=== PATIENT | female | born 1940 | race Caucasian/White ===

== ENCOUNTER 2019-05-31 14:36 | Inpatient (IN) ==
--- OUTSIDE RECORDS SUMMARY | 2019-05-31 14:38 | External Medical Summary | Continuity of Care Document ---
:1940 Author Name Gala Fong, Provider Address Unavailable Unavailable , Care Team Providers Name Role Phone Unavailable Unavailable Unavailable SHANE MCNEAL Unavailable Unavailable Problems Active medical history not documented Allergies and Adverse Reactions No Known Drug Allergies (Allergy) Medications Crestor Ajit TAPIA Refills: 0 Aspirin 81 MG TABAjit Everett Refills: 0 Procedures Procedures not documented Immunizations Immunizations not documented Plan of Treatment Planned Observations Planned Goals not documented Results No Known Results Results not documented
[2019-05-31] MEDS ORDERED: ONDANSETRON INJ 2 MG/ML 2 ML VIAL IV STA (14:58)
[2019-05-31] MEDS ORDERED: SODIUM CHLORIDE 0.9% 1000ML 1,000 ML IV ONE (14:58)
[2019-05-31] MEDS ORDERED: MoRPHine SULFATE 2 MG/ML CARP IV STA (15:08)
[2019-05-31] MEDS ORDERED: SODIUM CHLORIDE 0.9% 1000ML 500 ML IV ONE (15:14)
--- NOTE | 2019-05-31 15:36 | Emergency Department Note ---
ED Visit Note This patient was seen in concert with Dr. Mckay and we discussed and agreed upon the history, physical, assessment and plan. . Resident Activity Tracking Resident Involvement: Resident Care Provided Care Provided: Adult [facility] Medicine
[2019-05-31 15:39] LABS: Basophils # (auto) 0.01 K/uL (0-0.2); Basophils % (auto) 0.1 %; Eosinophils # (auto) 0.01 K/uL (0-0.5); Eosinophils % (auto) 0.1 %; Hematocrit (blood only) 39.1 % (37-47); Hemoglobin 13.3 g/dL (12.0-16.0); Immature Granulocytes # (auto) 0.04 K/uL (0.00-0.02); Immature Granulocytes % (auto) 0.3 %; Lymphocytes # (auto) 0.83 K/uL (1.2-3.4); Lymphocytes % (auto) 6.5 %; Mean Corpuscular Hemoglobin 29.4 pg (25-34); Mean Corpuscular Volume 86.5 fL (80-100); Mean Platelet Volume 10.8 fL (7.4-10.4); Monocytes # (auto) 0.59 K/uL (0.11-0.59); Monocytes % (auto) 4.6 %; Neutrophils # (auto) 11.33 K/uL (1.4-6.5); Neutrophils % (auto) 88.4 %; Platelet Count 210 K/uL (130-400); RDW Coefficient of Variation 13.4 % (11.5-14.5); RDW Standard Deviation 42.5 fL (36.4-46.3); Red Blood Count 4.52 M/uL (4.2-5.4); White Blood Count 12.81 K/uL (4.8-10.8)
[2019-05-31 16:04] LABS: Albumin Level 3.9 gm/dl (3.4-5.0); Calcium 9.7 mg/dl (8.5-10.1); Creatinine Clr Calc Pharmacy 39.1 ml/min; Est GFR (African American) 65.2; Est GFR (Non-African American) 56.2; Potassium 3.4 mmol/L (3.5-5.1)
[2019-05-31 16:07] LABS: Albumin Globulin Ratio 1.1 (0.9-2); Bilirubin,Total 0.6 mg/dl (0.2-1); Globulin 3.5 gm/dl (2.5-4.0); Total Protein 7.4 gm/dl (6.4-8.2)
[2019-05-31] MEDS ORDERED: IOVERSOL 100ml IV PRN (16:23)
--- NOTE | 2019-05-31 16:52 | CT Scan Report ---
CT abd pelvis IV con only CLINICAL HISTORY: Right abdominal pain COMPARISON STUDY: August 2015 TECHNIQUE: The patient was scanned in a dynamic helical fashion during intravenous administration of 93 cc of Optiray 320. A dose lowering technique was utilized adhering to the principles of ALARA. CT DOSE: 585.73 mGycm FINDINGS: Lower chest: There are minor dependent atelectatic changes. Liver: No focal hepatic masses are visualized. There is minimal intrahepatic biliary ductal prominenc e, likely secondary to a prior cholecystectomy. Gallbladder: Surgically absent Spleen: There are no focal splenic masses. There is trace fluid at the level of the lower pole of the spleen. There is minimal infiltration of the fat at the inferior margin of the spleen. Pancreas: Unremarkable. Adrenal glands: Unremarkable. Kidneys: There is symmetric renal cortical enhancement. The kidneys are normal in size without hydron ephrosis. Bowel: There is colonic diverticulosis. There is sigmoid bowel wall thickening with minimal infiltrat ion of the perisigmoid fat. While likely secondary to diverticulitis, or infectious colitis, close cl inical follow-up will be necessary to exclude an underlying neoplasm. There is mild dilatation of the more proximal colon with moderate fecal retention. There are mildly prominent fluid-filled small bow el loops. Peritoneum: There is no free air. There is trace intra-abdominal fluid. Vasculature: The abdominal aorta is normal in course and caliber. Adenopathy: None. Pelvic viscera: The uterus appears surgically absent. Skeletal structures: No destructive osseous lesions are seen. IMPRESSION: 1. Sigmoid diverticulosis with sigmoid wall thickening and mild infiltration of perisigmoid fat. Whil e likely secondary to diverticulitis or infectious sigmoid colitis, close follow-up will be necessary to exclude an underlying neoplasm 2. There is secondary mild dilatation of the more proximal colon with moderate fecal retention. Addit ion there are mildly prominent fluid-filled small bowel loops 3. No evidence of free intraperitoneal air Electronically signed by: Delonte Elizabeth M.D. 05/31/2019 4:50 PM
[2019-05-31] MEDS ORDERED: ONDANSETRON INJ 2 MG/ML 2 ML VIAL IV PRN (18:29)
[2019-05-31] MEDS ORDERED: ACETAMINOPHEN 1,000 MG/100 ML VIAL IV PRN (18:42)
--- NOTE | 2019-05-31 18:43 | History & Physical Report ---
Date of Service May 31, 2019 Assessment & Plan (1) Diverticulitis: This is a 78-year-old female with a PMH of hyperlipidemia, hypothyroidism and GERD who presents with worsening abdominal pain x 3 days and was found to have acute diverticulitis and moderate fecal retention. -Diffuse abdominal pain, nausea and vomiting x 3 days. Diagnosed with colitis at outside hospital yesterday and started on Cipro and Flagyl -Afebrile, hemodynamically stable. Leukocytosis of 12.1 -CT abdomen pelvis with sigmoid diverticulosis with sigmoid wall thickening and mild infiltration of perisigmoid fat likely secondary to diverticulitis -Continue antibiotic coverage with Zosyn -IV fluids, pain control, n.p.o. for now -Routine GI consult (2) Fecal retention: Last bowel movement 5 days ago. Endorses 2 bowel movements per week, so this is not entirely unusual -CT abd/pelvis with moderate fecal retention and additional mildly prominent fluid-filled small bowel loops -Started on bowel regimen with Senokot-S twice daily and daily MiraLAX -Repeat KUB in the morning (3) Electrolyte abnormality: Na of 135, K of 3.4 in setting of vomiting, poor PO intake -IV fluid replacement with potassium (4) Hyperlipidemia: Continue atorvastatin (5) Hypothyroidism: Continue levothyroxine (6) GERD (gastroesophageal reflux disease): Continue omeprazole DVT Ppx: SCDs Code status: DNR per discussion with patient PCP: Cole YANES ([place]) Dispo: Admitted to med/surg. Plan to return home once medically stable. Patient seen in collaboration with Dr. Chung. Please see addendum. History of Present Illness Chief Complaint: Abdominal pain Primary Care Provider: Antonio Galvan This is a 78-year-old female with a PMH of hyperlipidemia, hypothyroidism and GERD who presents with worsening abdominal pain x 3 days. Patient endorses diffuse sharp abdominal pain with associated nausea. Was seen at [facility] yesterday and was diagnosed with colitis and discharged on Cipro and Flagyl. Overnight, patient developed worsening nausea and endorses 12 small episodes of bilious emesis. Came to ED today for further evaluation. Endorses continued nausea, vomiting and diffuse abdominal pain. Last bowel movement was 5 days ago the patient states she normally only has 2 bowel movements per week. Denies any nausea, vomiting, lightheadedness, visual changes, chest pain, palpitations, dysuria, hematuria or diarrhea. Has history of diverticulitis episode years ago. Allergies Allergy/AdvReac Type Severity Reaction Status Date / Time fexofenadine Allergy Unknown HIVES Verified 05/31/19 15:34 pseudoephedrine Allergy Unknown HIVES Verified 05/31/19 15:34 Home Medications Home Medications Medication Instructions Recorded Confirmed Type atorvastatin 10 mg PO DAILY 05/31/19 05/31/19 History ciprofloxacin HCl 500 mg PO Q12H 05/31/19 05/31/19 History latanoprost 1 drp OPB HS 05/31/19 05/31/19 History levothyroxine 75 mcg PO QAM 05/31/19 05/31/19 History metronidazole 500 mg PO Q8H 05/31/19 05/31/19 History omeprazole 20 mg PO QAM 05/31/19 05/31/19 History ondansetron HCl 4 mg PO Q8H PRN 05/31/19 05/31/19 History Past Med/Surg History Medical History GERD (gastroesophageal reflux disease) (Chronic) Hyperlipidemia (Chronic) Hypothyroidism (Chronic) Surgical History Hx of cervical spine surgery (Chronic) Hx of cholecystectomy (Chronic) Status post hysterectomy (Chronic) Family History Other Coronary heart disease Diabetes Social History Preferred Language: Urdu Communication Ability: Effective International Nurse Required: No Beliefs That Will Affect Care: None Current Living Situation: Alone Other Information That Helps Us Care for You: No Feels Safe at Home: Yes Safety Concerns: Feels Safe At This Time Smoking Status: Never smoker Hx Alcohol Use: No Hx Substance Use: No Review of Systems Review of Systems: At least ten systems reviewed and negative except as noted in the HPI. Physical Exam Physical Exam: General Appearance: WD/WN, vitals as above, NAD, sitting up in bed, pleasant, conversing easily Head: normocephalic, atraumatic Eyes: normal inspection, PERRL, conjunctivae normal, anicteric sclerae ENT: external ear and nose normal, oropharynx normal Neck: trachea midline, no thyromegaly normal visual inspection Respiratory: lungs clear to auscultation, no wheeze, rales, rhonchi. Normal insp/exp effort, no accessory muscle use Cardiovascular: regular rate, rhythm, no murmur appreciated, normal peripheral pulses, trace BLE edema. Vessels: no JVD or carotid bruit Chest: normal inspection of chest Abdomen/GI: hypoactive bowel sounds, soft but distended, diffusely tender to palpation, no guarding, no hepatosplenomegaly Extremities/Musculoskelatal: no cyanosis or clubbing, extremities motor strength 5/5 Neurologic: PERRL, EOMI, accommodation nl, no face palsy, no dysarthria CN's II-XI intact bilaterally and moves all extremities Psychiatric: A+Ox3, euthymic affect Skin: no rashes, normal color, warm/dry Results & Data Vital Signs (Past 12 Hours) Vital Signs Temp Pulse Pulse Resp BP BP Pulse Ox 05/31/19 18:10 67 20 142/97 H 99 05/31/19 17:00 83 18 171/67 H 96 05/31/19 14:43 37.0 C 94 H 18 130/75 94 Laboratory Results Short CBC 05/31/19 Range/Units 15:23 WBC 12.81 H (4.8-10.8) K/uL Hgb 13.3 (12.0-16.0) g/dL Hct 39.1 (37-47) % Plt Count 210 (130-400) K/uL BMP 05/31/19 15:23 Sodium 135 L Potassium 3.4 L Chloride 102 Carbon Dioxide 26 BUN 14 Creatinine 0.96 Glucose 131 H Calcium 9.7 Liver Function 05/31/19 Range/Units 15:23 Total Bilirubin 0.6 (0.2-1) mg/dl AST 15 (15-37) U/L ALT 15 (12-78) U/L Alkaline Phosphatase 107 (45-117) U/L Albumin 3.9 (3.4-5.0) gm/dl Diagnostic Findings CT abd/pelvis: IMPRESSION: 1. Sigmoid diverticulosis with sigmoid wall thickening and mild infiltration of perisigmoid fat. While likely secondary to diverticulitis or infectious sigmoid colitis, close follow-up will be necessary to exclude an underlying neoplasm 2. There is secondary mild dilatation of the more proximal colon with moderate fecal retention. Addition there are mildly prominent fluid-filled small bowel loops 3. No evidence of free intraperitoneal air Code Status & VTE Plan VTE Prophylaxis Plan VTE Prophylaxis will be ordered: Yes Supervising Physician Co-Signing Physician Notes Patient is a 78-year-old female with history of hyperlipidemia, GERD and other problems presents with history of worsening abdominal pain since 3 days duration. Reports associated nausea, vomiting, constipation. Last bowel movement is 5 days ago. She also reports having bloody bowel movement yesterday. She was evaluated at [facility] yesterday and was discharged home on oral antibiotics. Her abdomen is more distended than usual as per the patient. Symptoms have gradually worsened and so she presented to the ED for further evaluation. CT abdomen showed findings suggestive of sigmoid diverticulitis or infectious sigmoid colitis. Also showed fecal retention. No evidence of intraperitoneal air. On exam patient is moderately built and aldo shed, no apparent distress, normocephalic atraumatic, lungs are clear to auscultation, S1-S2, no murmur, abdomen soft, mildly distended, diffuse tender, decreased bowel sounds, no pedal edema, grossly no focal neurological deficits. Patient is admitted for management of acute diverticulitis, fecal retention. Agree with IV fluids, IV Zosyn, bowel rest, pain control. Will repeat KUB in the morning. Started on bowel regimen for constipation. Minimize narcotic use secondary to fecal retention. I personally reviewed the record. Patient is interviewed and examined at bedside. Patient's care is coordinated with Taniya Quintanilla PA-C. Please refer to the documentation above for details of patient's presentation and for discussion of other issues.
[2019-05-31] MEDS ORDERED: PIPERACILL/TAZOBAC CONSULT ACTIVE PRN (18:46)
[2019-05-31] MEDS ORDERED: PIPERACILLIN/TAZOBACTAM 3.375 GM in DEXTROSE 5% 100 ML IV ONE (19:00)
[2019-05-31] MEDS: MoRPHine SULFATE 2 MG/ML CARP IV PRN (19:47)
[2019-05-31] MEDS: NSS + 20MEQ KCL 20 MEQ/1,000 ML BAG IV SCH (19:49)
--- NOTE | 2019-05-31 19:52 | Emergency Department Note ---
Entered by Charley Kidd acting as a scribe for Abdi Mckay MD History of Present Illness General Chief complaint: Vomiting Stated complaint: ABD PAIN,VOMITING,CANT KEEP FOOD/MEDS Time Seen by Provider: 05/31/19 14:45 Source: patient and family History of Present Illness Onset (ago): day(s) 2 Location: abdomen Pain Consistency: + other (persistent ) Maximum Pain Intensity: 5 Quality: + sharp Associated symptoms: + nausea/vomiting and + other (positive constipation; positive bright red blood in stool; negative diarrhea; negative palpitations); no fever/chills The patient is a 78 year old female of PHMx of Thyroid disorder who presents to the Emergency Room with complaints of persistent abdominal pain that began approximately two days prior to arrival. She describes her pain as sharp. The patient states that she has had nausea and vomiting during this time. She states that she was seen in the [place] ED two days ago for these symptoms and was diagnosed with colitis. The patient states that she was given Cipro, Flagil, and Zofran for her symptoms, but states that she has been unable to keep these medications down without vomiting. Per the patient's granddaughter at bedside, the patient has been constipated during this time, but had some bright red blood in a bowel movement yesterday. The patient denies diarrhea, palpitations, and fever. The patient denies a history of hemorrhoids. Home Medications Home Medications Medication Instructions Recorded Confirmed Type atorvastatin 10 mg PO DAILY 05/31/19 05/31/19 History ciprofloxacin HCl 500 mg PO Q12H 05/31/19 05/31/19 History latanoprost 1 drp OPB HS 05/31/19 05/31/19 History levothyroxine 75 mcg PO QAM 05/31/19 05/31/19 History metronidazole 500 mg PO Q8H 05/31/19 05/31/19 History omeprazole 20 mg PO QAM 05/31/19 05/31/19 History ondansetron HCl 4 mg PO Q8H PRN 05/31/19 05/31/19 History Allergies Allergy/AdvReac Type Severity Reaction Status Date / Time fexofenadine Allergy Unknown HIVES Verified 05/31/19 15:34 pseudoephedrine Allergy Unknown HIVES Verified 05/31/19 15:34 Past Med/Surg History Medical History GERD (gastroesophageal reflux disease) (Chronic) Hyperlipidemia (Chronic) Hypothyroidism (Chronic) Surgical History Hx of cervical spine surgery (Chronic) Hx of cholecystectomy (Chronic) Status post hysterectomy (Chronic) Family History Other Coronary heart disease Diabetes Social History Preferred Language: Romanian Communication Ability: Effective Pipe Processor Required: No Beliefs That Will Affect Care: None Current Living Situation: Alone Other Information That Helps Us Care for You: No Feels Safe at Home: Yes Safety Concerns: Feels Safe At This Time Smoking Status: Never smoker Hx Alcohol Use: No Hx Substance Use: No Review of Systems See HPI for pertinent positives & negatives. and A total of 10 systems reviewed and were otherwise negative Physical Exam Vital Signs Vital Signs - 24 hr 05/31/19 14:43 05/31/19 15:12 05/31/19 17:00 Temperature 37.0 C Temperature Source Oral Oral Sepsis Recent Fever Within 48 Hours No Sepsis New/Unexplained Change in Mental Status No Sepsis Action Taken by Nursing No Action Required Pulse Rate 94 H Pulse Rate [Right Finger] 83 Respiratory Rate 18 18 Respiratory Depth Normal Blood Pressure 130/75 Blood Pressure [Right Arm] 171/67 H Blood Pressure Mean 93 Blood Pressure Mean [Right Arm] 101 Pulse Oximetry 94 96 Oxygen Delivery Method Room Air Room Air Constitutional: Vital signs reviewed. Eyes: Pupils are equal round reactive to light. Conjunctiva are noninjected. ENT: Pharynx is clear without erythema or exudate. Mucous membranes are dry. Neck supple without meningeal signs. Respiratory: Clear to auscultation bilaterally. Breath sounds are equal bilaterally. Cardiovascular: Regular rate and rhythm. No rubs or gallops. GI: Diffuse tenderness throughout the abdomen. No rebound or guarding. Soft, nondistended. Bowel sounds are present. Musculoskeletal: No peripheral edema. No lower extremity tenderness. Integumentary: No cyanosis. Neurological: The patient is awake and alert. No focal deficits. Psychiatric: Normal affect. Course 1448: The patient was seen and evaluated by the resident Iris Summers. 1508: Past medical records reviewed. The patient was evaluated in room A4B. A complete history and physical exam was performed. 1643: Per the patient's records from [place], the patient had a CAT scan which showed distal proctocolitis extending from the proximal sigmoid colon to the rectum. This showed no abscess or perforation. Her records showed a white count of 7.7 yesterday. 1651: Upon reevaluation, the patient is feeling better. I discussed the results with her and she is agreeable to hospitalization. 1706: The resident discussed the case with Marcelina Gracia PA-C who accepts the patient for further evaluation under Dr. Felecia mcknight. Consultations Consultation #1: The resident discussed the case with Marcelina Gracia PA-C who accepts the patient for further evaluation under Dr. Felecia mcknight. Time: 17:06 Administered Medications Morphine Sulfate (Morphine Sulfate) 2 mg IV Q4H PRN PRN Reason: Pain Stop: 06/14/19 19:29 Last Admin: 05/31/19 19:47 Dose: 2 mg Documented by: [id number] Discontinued Medications Sodium Chloride (Nss 1000ml) 1,000 mls @ 999 mls/hr IV .Q1H1M ONE Stop: 05/31/19 15:58 Last Admin: 05/31/19 15:53 Dose: Not Given Documented by: [id number] Sodium Chloride (Nss 1000ml) 500 mls @ 999 mls/hr IV .Q31M ONE Stop: 05/31/19 15:44 Last Infusion: 05/31/19 17:02 Dose: 0 mls/hr Documented by: [id number] Admin: 05/31/19 15:30 Dose: 999 mls/hr Documented by: [id number] Piperacillin Sod/Tazobactam (Sod 3.375 gm/ Dextrose) 115 mls @ 230 mls/hr IV NOW ONE; Protocol Stop: 05/31/19 19:29 Last Admin: 05/31/19 19:47 Dose: 230 mls/hr Documented by: [id number] Ioversol (Optiray 320 100ml) 93 ml IV ONCE PRN PRN Reason: Interaction Checking Stop: 06/04/19 16:22 Last Admin: 05/31/19 16:24 Dose: 93 ml Documented by: [id number] Morphine Sulfate (Morphine Sulfate) 2 mg IV NOW STA Stop: 05/31/19 15:09 Last Admin: 05/31/19 15:30 Dose: 2 mg Documented by: [id number] Ondansetron HCl (Zofran) 4 mg IV NOW STA Stop: 05/31/19 14:59 Last Admin: 05/31/19 15:30 Dose: 4 mg Documented by: [id number] Medical Decision Making Differential Diagnosis Differential diagnoses include diverticulitis, colitis, constipation, ischemic bowel, medication side effect, and others were considered. Medical Records Attestation: I reviewed the patient's medical records. I did perform a limited focused review of portions of the patient's old chart on the electronic medical record. The patient has had no recent pertinent visits to this hospital. Home Medications Current Medication List: was personally reviewed by me Laboratory Data Attestation: I reviewed the patient's lab results. Result diagrams: 05/31/19 15:23 05/31/19 15:23 Lab Results 05/31/19 05/31/19 05/31/19 Range/Units 15:23 15:23 15:29 WBC 12.81 H (4.8-10.8) K/uL RBC 4.52 (4.2-5.4) M/uL Hgb 13.3 (12.0-16.0) g/dL Hct 39.1 (37-47) % MCV 86.5 (80-100) fL MCH 29.4 (25-34) pg MCHC 34.0 (32-36) g/dL RDW Std Deviation 42.5 (36.4-46.3) fL RDW Coeff of Lance 13.4 (11.5-14.5) % Plt Count 210 (130-400) K/uL MPV 10.8 H (7.4-10.4) fL Immature Gran % (Auto) 0.3 % Neut % (Auto) 88.4 % Lymph % (Auto) 6.5 % Gove % (Auto) 4.6 % Eos % (Auto) 0.1 % Baso % (Auto) 0.1 % Immature Gran # (Auto) 0.04 H (0.00-0.02) K/uL Neut # (Auto) 11.33 H (1.4-6.5) K/uL Lymph # (Auto) 0.83 L (1.2-3.4) K/uL Gove # (Auto) 0.59 (0.11-0.59) K/uL Eos # (Auto) 0.01 (0-0.5) K/uL Baso # (Auto) 0.01 (0-0.2) K/uL Sodium 135 L (136-145) mmol/L Potassium 3.4 L (3.5-5.1) mmol/L Chloride 102 (98-107) mmol/L Carbon Dioxide 26 (21-32) mmol/L Anion Gap 7.0 (3-11) BUN 14 (7-18) mg/dl Creatinine 0.96 (0.6-1.2) mg/dl Est Cr Clr Drug Dosing 39.1 ml/min Est GFR ( Amer) 65.2 Est GFR (Non-Af Amer) 56.2 BUN/Creatinine Ratio 15.0 (10-20) Glucose 131 H (70-99) mg/dl POC Lactic Acid Dc 1.11 (0.90-1.70) mmol/L Calcium 9.7 (8.5-10.1) mg/dl Total Bilirubin 0.6 (0.2-1) mg/dl AST 15 (15-37) U/L ALT 15 (12-78) U/L Alkaline Phosphatase 107 (45-117) U/L Total Protein 7.4 (6.4-8.2) gm/dl Albumin 3.9 (3.4-5.0) gm/dl Globulin 3.5 (2.5-4.0) gm/dl Albumin/Globulin Ratio 1.1 (0.9-2) Lipase 81 (73-393) U/L Imaging Data Radiologist's Impression: Radiology results as stated below per my review and the radiologist's interpretation: CT abd pelvis IV con only CLINICAL HISTORY: Right abdominal pain COMPARISON STUDY: August 2015 TECHNIQUE: The patient was scanned in a dynamic helical fashion during intravenous administration of 93 cc of Optiray 320. A dose lowering technique was utilized adhering to the principles of ALARA. CT DOSE: 585.73 mGycm FINDINGS: Lower chest: There are minor dependent atelectatic changes. Liver: No focal hepatic masses are visualized. There is minimal intrahepatic biliary ductal prominence, likely secondary to a prior cholecystectomy. Gallbladder: Surgically absent Spleen: There are no focal splenic masses. There is trace fluid at the level of the lower pole of the spleen. There is minimal infiltration of the fat at the inferior margin of the spleen. Pancreas: Unremarkable. Adrenal glands: Unremarkable. Kidneys: There is symmetric renal cortical enhancement. The kidneys are normal in size without hydronephrosis. Bowel: There is colonic diverticulosis. There is sigmoid bowel wall thickening with minimal infiltration of the perisigmoid fat. While likely secondary to diverticulitis, or infectious colitis, close clinical follow-up will be necessary to exclude an underlying neoplasm. There is mild dilatation of the more proximal colon with moderate fecal retention. There are mildly prominent fluid-filled small bowel loops. Peritoneum: There is no free air. There is trace intra-abdominal fluid. Vasculature: The abdominal aorta is normal in course and caliber. Adenopathy: None. Pelvic viscera: The uterus appears surgically absent. Skeletal structures: No destructive osseous lesions are seen. IMPRESSION: 1. Sigmoid diverticulosis with sigmoid wall thickening and mild infiltration of perisigmoid fat. While likely secondary to diverticulitis or infectious sigmoid colitis, close follow-up will be necessary to exclude an underlying neoplasm 2. There is secondary mild dilatation of the more proximal colon with moderate fecal retention. Addition there are mildly prominent fluid-filled small bowel loops 3. No evidence of free intraperitoneal air Electronically signed by: Delonte Elizabeth M.D. 05/31/2019 4:50 PM Blood Pressure Blood Pressure Findings: Elevated blood pressure Blood Pressure Disposition: further management by hospitalist VICKI Hernandes I did evaluate the patient as noted above. Worsening abdominal pain and vomiting. She has been unable to keep down her medications. She is diffusely tender on examination. IV access was established. The patient was placed on a continuous quality assurance monitor final. She was treated with IV morphine and Zofran. I did order a urine analysis. I did order and review the patient's blood work as noted in the electronic medical record. Her white count is elevated with a left shift. Potassium is 3.4. Lactic acid is negative. I did order a CT of the abdomen and pelvis. I did review the images myself as well as the radiology report as described above. She does have dilated small bowel loops without signs of obstruction. She does have diverticulitis. The patient was treated with Zosyn IV. I did discuss the test results with the patient and her family. I did recommend hospitalization for further care and evaluation as well as bowel rest. The case was discussed with the hospitalist and correctional casework specialist. Resident Physician Supervision Note: I did perform an independent evaluation and examination of this patient as described. I also saw this patient in conjunction with the resident, Dr. Summers, and guided management for the patient. Impression & Plan Diverticulitis, Intractable vomiting Discharge Plan Visit Data *Final* Discharge Date/Time: 05/31/19 18:11 Chief Complaint: Vomiting Stated Complaint: ABD PAIN,VOMITING,CANT KEEP FOOD/MEDS ED Provider: Abdi Mckay ED Midlevel Provider: Iris Summers Discharge Problem: Diverticulitis, Intractable vomiting Patient Disposition: Admitted As Inpatient Discharge Instructions Interventions: ED Discharge Assessment Last Done: 05/31/19 18:11 The scribe's documentation has been prepared under my direction and personally reviewed by me in its entirety. I confirm that the note above accurately reflects all work, treatment, procedures, and medical decision making performed by me.
[2019-05-31] MEDS: POLYETHYLENE (MIRALAX) 17 GM PACK PO SCH (20:11)
[2019-05-31] MEDS: DOCUSATE SODIUM/SENNA 50/8.6MG TAB PO SCH (20:48)
[2019-05-31] MEDS: FAMOTIDINE 20 MG in SYRINGE 3 ML IV SCH (20:56)
[2019-05-31 20:57] LABS: Appearance Urine Clear (Clear); Bacteria Urine Automated Negative (Negative); Bilirubin Urine Negative (Negative); Blood Urine Trace (Negative); Color Urine Yellow; Glucose Urine UA Negative (Negative); Ketones Urine Trace (Negative); Leukocyte Esterase Urine Negative (Negative); Nitrite Urine Negative (Negative); Protein Urine Negative (Negative); RBC Urine Automated 0-4 /hpf (0-4); Specific Gravity Urine > 1.045 (1.000-1.030); Urobilinogen Urine Negative (Negative)
[2019-05-31] MEDS ORDERED: DOCUSATE SODIUM 100 MG CAP PO SCH (21:00)
[2019-06-01] MEDS: PIPERACILLIN/TAZOBACTAM 3.375 GM in DEXTROSE 5% 100 ML IV SCH ×4 (00:05→23:15)
[2019-06-01] MEDS: MoRPHine SULFATE 2 MG/ML CARP IV PRN (02:58)
[2019-06-01] MEDS: NSS + 20MEQ KCL 20 MEQ/1,000 ML BAG IV SCH (05:27)
[2019-06-01 05:32] LABS: Hematocrit (blood only) 39.1 % (37-47); Hemoglobin 12.9 g/dL (12.0-16.0); Mean Corpuscular Hemoglobin 29.4 pg (25-34); Mean Corpuscular Volume 89.1 fL (80-100); Mean Platelet Volume 10.8 fL (7.4-10.4); Platelet Count 219 K/uL (130-400); RDW Coefficient of Variation 13.6 % (11.5-14.5); RDW Standard Deviation 44.2 fL (36.4-46.3); Red Blood Count 4.39 M/uL (4.2-5.4); White Blood Count 11.84 K/uL (4.8-10.8)
[2019-06-01 05:59] LABS: BUN Creatinine Ratio 12.9 (10-20); Calcium 8.3 mg/dl (8.5-10.1); Creatinine Clr Calc Pharmacy 38.4 ml/min; Est GFR (African American) 63.6; Est GFR (Non-African American) 54.9; Magnesium 2.1 mg/dl (1.8-2.4); Potassium 3.3 mmol/L (3.5-5.1)
[2019-06-01] MEDS: DOCUSATE SODIUM/SENNA 50/8.6MG TAB PO SCH ×2 (07:32→20:10)
[2019-06-01] MEDS: POLYETHYLENE (MIRALAX) 17 GM PACK PO SCH (07:32)
[2019-06-01] MEDS: FAMOTIDINE 20 MG in SYRINGE 3 ML IV SCH ×2 (09:07→20:09)
--- NOTE | 2019-06-01 10:14 | XRay Report ---
XR KUB/Abdomen 1 view CLINICAL HISTORY: Abdominal pain COMPARISON STUDY: CT scan dated 05/31/2019 FINDINGS: There is contrast within the bladder secondary to a prior CT scan. There is mild to moderat e colonic distention. There are gas-filled small bowel loops. IMPRESSION: Gaseous distention of bowel with moderate colonic stool. Electronically signed by: Delonte Elizabeth M.D. 06/01/2019 10:13 AM
--- NOTE | 2019-06-01 12:07 | Hospitalist Progress Note ---
Date of Service June 01, 2019 Assessment & Plan (1) Diverticulitis: Still has abdominal pain. Nausea and vomiting controlled. CT abdomen pelvis with sigmoid diverticulosis with sigmoid wall thickening and mild infiltration of perisigmoid fat likely secondary to diverticulitis Continue antibiotic coverage with Zosyn Continue iv fluids History and abdominal xray this am suggestive of ileus as well K is 3.3 today. Will replete. Keep NPO for now and monitor bowel movements (2) Fecal retention: Likely ileus from diverticulitis Also hypokalemic. Will replete and monitor (3) Electrolyte abnormality: Mild hyponatremia resolved Still has hypokalemia Will replete and monitor Calcium is 8.3 today was 9 on admission with Albumin 3.7. Will monitor Calcium level (4) Hyperlipidemia: Continue atorvastatin (5) Hypothyroidism: Continue levothyroxine Check TSH (6) GERD (gastroesophageal reflux disease): Continue omeprazole Subjective Patient reports she still has anorexia and abdominal pain. Started passing flatus this morning. No nausea or vomiting at this time. She did report bright red bowel movement about 3 days ago. Still has abdominal distention but not worsening. Denied any palpitations, syncope, chest pain, SOB. Denies any fevers, chills Denies any dysuria, frequency, urgency Review of Systems Review of Systems: All systems reviewed and unremarkable except for mentioned above. Physical Exam Physical Exam: General: Average body habitus, no acute distress and not ill appearing Eyes: PERRL, conjunctivae normal, not pale, anicteric sclerae, EOM intact bilaterally ENMT: External ear and nose normal, oropharynx normal Neck: Normal visual inspection, no tracheal deviation, no swelling noted Respiratory: Normal respiratory effort, no respiratory distress, lungs clear to auscultation, no crackles and no wheezes Cardiovascular: Pulse is RRR. Heart Sounds: S1 and 2, no pedal edema Chest (Breasts): Chest: normal inspection of chest Gastrointestinal (Abdomen): Abdomen is distended but soft, +LUQ and LLQ tenderness, no guarding, no palpable hepatosplenomegaly, + bowel sounds Musculoskeletal: No cyanosis or clubbing, all extremities motor strength 5/5 Neurologic: Alert and oriented x 3, No focal weakness, sensation grossly intact Psychiatric: Alert and oriented x 3, euthymic affect, no depressed affect Lymphatic: No cervical lymphadenopathy Results & Data Vital Signs (Past 12 Hours) Vital Signs Temp Pulse Resp BP Pulse Ox 06/01/19 07:22 36.9 C 81 18 140/64 95 Laboratory Results Laboratory Results - last 24 hr 05/31/19 05/31/19 05/31/19 15:23 15:23 15:29 WBC 12.81 H RBC 4.52 Hgb 13.3 Hct 39.1 MCV 86.5 MCH 29.4 MCHC 34.0 RDW Std Deviation 42.5 RDW Coeff of Lance 13.4 Plt Count 210 MPV 10.8 H Immature Gran % (Auto) 0.3 Neut % (Auto) 88.4 Lymph % (Auto) 6.5 [place] % (Auto) 4.6 Eos % (Auto) 0.1 Baso % (Auto) 0.1 Immature Gran # (Auto) 0.04 H Neut # (Auto) 11.33 H Lymph # (Auto) 0.83 L [place] # (Auto) 0.59 Eos # (Auto) 0.01 Baso # (Auto) 0.01 Sodium 135 L Potassium 3.4 L Chloride 102 Carbon Dioxide 26 Anion Gap 7.0 BUN 14 Creatinine 0.96 Est Cr Clr Drug Dosing 39.1 Est GFR ( Amer) 65.2 Est GFR (Non-Af Amer) 56.2 BUN/Creatinine Ratio 15.0 Glucose 131 H POC Lactic Acid Dc 1.11 Calcium 9.7 Magnesium Total Bilirubin 0.6 AST 15 ALT 15 Alkaline Phosphatase 107 Total Protein 7.4 Albumin 3.9 Globulin 3.5 Albumin/Globulin Ratio 1.1 Lipase 81 Urine Color Urine Appearance Urine pH Ur Specific [place] Urine Protein Urine Glucose (UA) Urine Ketones Urine Blood Urine Nitrite Urine Bilirubin Urine Urobilinogen Ur Leukocyte Esterase Urine WBC (Auto) Urine RBC (Auto) U Hyaline Cast (Auto) U Epithel Cells (Auto) Urine Bacteria (Auto) 05/31/19 06/01/19 06/01/19 20:28 05:03 05:03 WBC 11.84 H RBC 4.39 Hgb 12.9 Hct 39.1 MCV 89.1 MCH 29.4 MCHC 33.0 RDW Std Deviation 44.2 RDW Coeff of Lance 13.6 Plt Count 219 MPV 10.8 H Immature Gran % (Auto) Neut % (Auto) Lymph % (Auto) [place] % (Auto) Eos % (Auto) Baso % (Auto) Immature Gran # (Auto) Neut # (Auto) Lymph # (Auto) [place] # (Auto) Eos # (Auto) Baso # (Auto) Sodium 139 Potassium 3.3 L Chloride 105 Carbon Dioxide 26 Anion Gap 8.0 BUN 13 Creatinine 0.98 Est Cr Clr Drug Dosing 38.4 Est GFR ( Amer) 63.6 Est GFR (Non-Af Amer) 54.9 BUN/Creatinine Ratio 12.9 Glucose 110 H POC Lactic Acid Dc Calcium 8.3 L Magnesium 2.1 Total Bilirubin AST ALT Alkaline Phosphatase Total Protein Albumin Globulin Albumin/Globulin Ratio Lipase Urine Color Yellow Urine Appearance Clear Urine pH 5.0 Ur Specific [place] > 1.045 H Urine Protein Negative Urine Glucose (UA) Negative Urine Ketones Trace H Urine Blood Trace H Urine Nitrite Negative Urine Bilirubin Negative Urine Urobilinogen Negative Ur Leukocyte Esterase Negative Urine WBC (Auto) 1-5 Urine RBC (Auto) 0-4 U Hyaline Cast (Auto) 1-5 U Epithel Cells (Auto) 10-20 H Urine Bacteria (Auto) Negative
[2019-06-01] MEDS: POTASSIUM CHLORIDE / WTR 10 MEQ/100 ML PLCT IV SCH ×3 (12:59→16:59)
[2019-06-01 17:57] LABS: BUN Creatinine Ratio 12.4 (10-20); Calcium 8.3 mg/dl (8.5-10.1); Creatinine Clr Calc Pharmacy 42.3 ml/min; Est GFR (African American) 71.4; Est GFR (Non-African American) 61.6; Potassium 4.1 mmol/L (3.5-5.1)
--- NOTE | 2019-06-01 18:04 | Gastrointestinal Consultation ---
Date of Consultation June 01, 2019 History of Present Illness Attending Physician: Brenna Young MD Reason for consult: Diverticulitis HPI: 78 yo female with 2 week h/o lower abdominal pain, decreased stool frequency. She reported increasing abd distention and pain on . She was seen in [place] [facility], told that she had "colitis," and placed on cipro/Flagyl. She had intractable vomiting and worsening abd distention shortly after beginning antibiotics, and was seen in [facility] night. CT showed sigmoid diverticulitis with mild proximal colonic dilation and AF levels in SB. Overnight, she was placed on bowel rest and abx. At present, she reports marked improvement - she is passing flatus, she is ambulatory, her pain and abd distention have markedly decreased, and she has no nausea. ROS is significant for 9 month h/o progressive malaise, dysgeusia, anorexia, weight loss. She reportedly underwent abd CT, EGD, CT for these symptoms, all of which were unremarkable. PE: Comfortable, NAD CV: RRR Resp: CTA Abd: mild distended and tympanic. Tender to light palpation in lower quadrants with mild guarding, no rebound. BS decreased. Extrem: no edema A/P: Diverticulitis Partial obstruction - Her obstructive symptoms appear resolving; Will begin clear liquids, cont IV abx, and follow abd exams. - I presume that she has diverticulitis, given recent csocpy, although I cannot rule this out. She should have repeat cscopy after resolution of this episode. Allergies Allergy/AdvReac Type Severity Reaction Status Date / Time fexofenadine Allergy Unknown HIVES Verified 05/31/19 15:34 pseudoephedrine Allergy Unknown HIVES Verified 05/31/19 15:34 Home Medications Home Medications Medication Instructions Recorded Confirmed Type atorvastatin 10 mg PO DAILY 05/31/19 05/31/19 History ciprofloxacin HCl 500 mg PO Q12H 05/31/19 05/31/19 History latanoprost 1 drp OPB HS 05/31/19 05/31/19 History levothyroxine 75 mcg PO QAM 05/31/19 05/31/19 History metronidazole 500 mg PO Q8H 05/31/19 05/31/19 History omeprazole 20 mg PO QAM 05/31/19 05/31/19 History ondansetron HCl 4 mg PO Q8H PRN 05/31/19 05/31/19 History Patient History Medical History GERD (gastroesophageal reflux disease) (Chronic) Hyperlipidemia (Chronic) Hypothyroidism (Chronic) Surgical History Hx of cervical spine surgery (Chronic) Hx of cholecystectomy (Chronic) Status post hysterectomy (Chronic) Family History Other Coronary heart disease Diabetes Social History Preferred Language: Turkmen Communication Ability: Effective [employer]ager[employer] Required: No Beliefs That Will Affect Care: None Current Living Situation: Alone Other Information That Helps Us Care for You: No Feels Safe at Home: Yes Safety Concerns: Feels Safe At This Time Smoking Status: Never smoker Hx Alcohol Use: No Hx Substance Use: No Results & Data Vital Signs (Past 12 Hours) Vital Signs Temp Pulse Pulse Resp BP Pulse Ox 06/01/19 15:29 36.5 C 75 17 136/74 97 06/01/19 07:22 36.9 C 81 18 140/64 95
[2019-06-01] MEDS ORDERED: SODIUM CHLORIDE 0.65% NA SOLN 45 ML (OCEAN) PRN (21:50)
[2019-06-01] MEDS: FLUTICASONE PROPIONATE NA SPR 16 GM BTL SCH (22:13)
[2019-06-02 05:28] LABS: Hematocrit (blood only) 34.4 % (37-47); Hemoglobin 11.4 g/dL (12.0-16.0); Mean Corpuscular Hgb Conc 33.1 g/dL (32-36); Mean Corpuscular Volume 87.5 fL (80-100); Mean Platelet Volume 10.4 fL (7.4-10.4); Platelet Count 197 K/uL (130-400); RDW Coefficient of Variation 13.5 % (11.5-14.5); RDW Standard Deviation 43.3 fL (36.4-46.3); Red Blood Count 3.93 M/uL (4.2-5.4); White Blood Count 8.24 K/uL (4.8-10.8)
[2019-06-02 06:02] LABS: Calcium 8.3 mg/dl (8.5-10.1); Creatinine Clr Calc Pharmacy 41.8 ml/min; Est GFR (African American) 70.5; Est GFR (Non-African American) 60.8; Potassium 3.9 mmol/L (3.5-5.1)
[2019-06-02] MEDS: PIPERACILLIN/TAZOBACTAM 3.375 GM in DEXTROSE 5% 100 ML IV SCH ×3 (08:08→23:42)
[2019-06-02] MEDS: POLYETHYLENE (MIRALAX) 17 GM PACK PO SCH (08:09)
[2019-06-02] MEDS: FLUTICASONE PROPIONATE NA SPR 16 GM BTL SCH (08:09)
[2019-06-02] MEDS: FAMOTIDINE 20 MG in SYRINGE 3 ML IV SCH ×2 (08:10→20:54)
[2019-06-02] MEDS: DOCUSATE SODIUM/SENNA 50/8.6MG TAB PO SCH (08:10)
--- NOTE | 2019-06-02 12:38 | Hospitalist Progress Note ---
Date of Service June 02, 2019 Assessment & Plan (1) Diverticulitis: Still has abdominal pain. Nausea and vomiting resolved. Continue antibiotic coverage with Zosyn Currently on clear liquid. Will advance diet as tolerated Leukocytosis resolved (2) Fecal retention: Likely ileus from diverticulitis Also hypokalemic. Will replete and monitor (3) Electrolyte abnormality: Hypokalemia resolved. Ca is 8.3, ionized calcium is 1.13 yesterday. Mag was 2.1 Monitor electrolytes and replete appropriately (4) Hyperlipidemia: Continue atorvastatin (5) Hypothyroidism: Continue levothyroxine TSH is 0.892 (6) GERD (gastroesophageal reflux disease): Continue omeprazole Subjective Patient reports abdominal distention is improving. Still has abdominal pain. Has moved her bowel a couple of times since yesterday. Stool are well formed and nonbloody Tolerating clear liquid well. No nausea, vomiting, fevers, chills. Review of Systems Review of Systems: All systems reviewed and unremarkable except for mentioned above. Physical Exam Physical Exam: General: No acute distress and not ill appearing Eyes: PERRL, conjunctivae normal, not pale, anicteric sclerae, EOM intact bilaterally ENMT: External ear and nose normal, oropharynx normal Neck: Normal visual inspection, no tracheal deviation, no swelling noted Respiratory: Normal respiratory effort, no respiratory distress, lungs clear to auscultation, no crackles and no wheezes Cardiovascular: Pulse is RRR. S1 and 2, no pedal edema Chest (Breasts): Chest: normal inspection of chest Gastrointestinal (Abdomen): Abdomen is distended but soft, +LUQ and LLQ tenderness, no guarding, no palpable hepatosplenomegaly, + bowel sounds Musculoskeletal: No cyanosis or clubbing, all extremities motor strength 5/5 Neurologic: Alert and oriented x 3, No focal weakness, sensation grossly intact Results & Data Vital Signs (Past 12 Hours) Vital Signs Temp Pulse Resp BP Pulse Ox 06/02/19 07:25 37 C 74 18 147/83 H 98 Laboratory Results Laboratory Results - last 24 hr 06/01/19 06/02/19 06/02/19 17:00 05:17 05:17 WBC 8.24 RBC 3.93 L Hgb 11.4 L Hct 34.4 L MCV 87.5 MCH 29.0 MCHC 33.1 RDW Std Deviation 43.3 RDW Coeff of Lance 13.5 Plt Count 197 MPV 10.4 Sodium 139 139 Potassium 4.1 D 3.9 Chloride 109 H 107 Carbon Dioxide 25 26 Anion Gap 5.0 6.0 BUN 11 10 Creatinine 0.89 0.90 Est Cr Clr Drug Dosing 42.3 41.8 Est GFR ( Amer) 71.4 70.5 Est GFR (Non-Af Amer) 61.6 60.8 BUN/Creatinine Ratio 12.4 11.0 Glucose 98 92 Calcium 8.3 L 8.3 L
--- NOTE | 2019-06-02 12:50 | Gastroenterology Progress Note ---
Date of Service June 02, 2019 Subjective Pt with mult large volume BM's overnight. Denies abd pain. Appetite returning . No nausea. On exam, pt appears comfortable. Afebrile. In chair, ambulating around room. Abd: soft mild distend and tympanic but improved from yesterday, diffuse tenderness to light palpation. WBC WNL A/P: Diverticulitis, partial large bowel obstruction - Obstructive symptoms resolving, pt clinically improving. Cont abx, can adv diet to full liquids. Results & Data Vital Signs (Past 12 Hours) Vital Signs Temp Pulse Resp BP Pulse Ox 06/02/19 07:25 37 C 74 18 147/83 H 98
[2019-06-02] MEDS ORDERED: ALBUTEROL 0.083% NEBU SOLN 3 ML VIAL NEB PRN (15:27)
[2019-06-03 06:08] LABS: Creatinine Clr Calc Pharmacy 39.6 ml/min
[2019-06-03] MEDS ORDERED: DOCUSATE SODIUM/SENNA 50/8.6MG TAB PO SCH (08:00)
--- NOTE | 2019-06-03 08:14 | Gastroenterology Progress Note ---
Date of Service June 03, 2019 Assessment & Plan (1) Fecal retention: 78 year old female with dyslipidemia, hypothyroidism and GERD who presents with worsening abdominal pain and constipation for three days w/ CT evidence of acute sigmoid diverticulitis, moderate fecal retention w/ partial large bowel obstruction. She is clinically improving, passing gas and moving bowels without any report of ongoing abdominal pain. She has remained afebrile with improvement of her leukocytosis on Zosyn. - Would continue IV ABX while admitted, can convert to PO Cipro/Flagyl - OP Colonoscopy in 6-8 weeks - Continue full liquid diet as tolerated - Low fiber diet x 2-3 weeks - Continue gentle bowel regimen - GI to sign off. Thank you for allowing us to participate in the care of this patient. Please call with any acute changes, questions or concerns. Please see addendum below with additional recommendation from my supervising physician. Present on Admission?: Yes (2) Diverticulitis: Present on Admission?: Yes Subjective Pt was seen and evaluated, chart reviewed. No family at bedside Notes she continues to clinically improve Today, denies any abdominal pain No nausea, vomiting Had tolerated her diet last evening Is moving her bowels, loose, brown stools Denies any black/bloody stools No fever, chills, CP, SOB Review of Systems Constitutional: no fever, no chills and no fatigue Respiratory: no cough and no dyspnea Cardiovascular: no chest pain and no dyspnea on exertion Gastrointestinal: + diarrhea/loose stools; no abdominal pain, no nausea, no vomiting, no blood in stools and no melena Physical Exam Constitutional: well developed and well nourished; no acute distress Neck: trachea midline Respiratory: normal respiratory effort, lungs clear to auscultation Cardiovascular: Rate/Rhythm: regular rate and regular rhythm Gastrointestinal (Abdomen): normal bowel sounds, soft, nontender, no hepatosplenomegaly Skin: no rashes, warm and dry Results & Data Vital Signs (Past 12 Hours) Vital Signs Temp Pulse Pulse Resp BP Pulse Ox 06/03/19 07:28 37 C 68 18 139/77 95 06/02/19 22:45 37 C 81 18 119/66 96
[2019-06-03] MEDS: PIPERACILLIN/TAZOBACTAM 3.375 GM in DEXTROSE 5% 100 ML IV SCH ×3 (08:42→23:30)
[2019-06-03] MEDS: FAMOTIDINE 20 MG in SYRINGE 3 ML IV SCH (08:43)
[2019-06-03] MEDS: FLUTICASONE PROPIONATE NA SPR 16 GM BTL SCH (08:43)
--- NOTE | 2019-06-03 10:06 | Hospitalist Progress Note ---
Date of Service June 03, 2019 Assessment & Plan (1) Diverticulitis: Still has abdominal pain. Nausea and vomiting resolved. Continue antibiotic coverage with Zosyn Diet being advanced Discontinued all laxatives for now (2) Electrolyte abnormality: Check BMP Monitor electrolytes and replete appropriately (3) Hyperlipidemia: Continue atorvastatin (4) Hypothyroidism: Continue levothyroxine TSH is 0.892 (5) GERD (gastroesophageal reflux disease): Continue omeprazole Subjective Patient reports she had multiple bowel movements overnight. Was intially formed and then became soft. Not watery. Not bloody. Still has abdominal pain Abdominal distention significantly improved. No nausea or vomiting No fevers Review of Systems Constitutional: + anorexia; no fever and no chills Eyes: no problem reported Ear, Nose, Mouth, Throat: no problem reported Respiratory: no cough, no dyspnea and no pain on inspiration Cardiovascular: no chest pain, no palpitations and no edema Gastrointestinal: + abdominal pain and + diarrhea/loose stools; no vomiting, no pain with swallowing and no blood in stools Genitourinary: no problem reported Musculoskeletal: no problem reported Neurologic: no problem reported Physical Exam Constitutional: WD/WN, vitals as above no acute distress and not ill appearing Eyes: PERRL, conjunctivae normal, anicteric sclerae ENMT: external ear and nose normal, oropharynx normal Respiratory: normal respiratory effort, lungs clear to auscultation Auscultation: no crackles and no wheezes Cardiovascular: RRR, no murmur, no edema Heart Sounds: normal S1 and normal S2 Gastrointestinal (Abdomen): Abdomen is not distended, soft, +LUQ pain, no guarding, normal bowel sounds Musculoskeletal: no cyanosis or clubbing, extremities motor strength 5/5 Neurologic: PERRL, EOMI, accommodation nl, no face palsy, no dysarthria moves all extremities; no focal motor deficits Results & Data Vital Signs (Past 12 Hours) Vital Signs Temp Pulse Pulse Resp BP Pulse Ox 06/03/19 07:28 37 C 68 18 139/77 95 06/02/19 22:45 37 C 81 18 119/66 96 Laboratory Results Laboratory Results - last 24 hr 06/03/19 04:57 Creatinine 0.95 Est Cr Clr Drug Dosing 39.6 Est GFR ( Amer) 66.0 Est GFR (Non-Af Amer) 57.0
[2019-06-03 11:32] LABS: BUN Creatinine Ratio 8.7 (10-20); Calcium 8.7 mg/dl (8.5-10.1); Creatinine Clr Calc Pharmacy 39.2 ml/min; Est GFR (African American) 65.2; Est GFR (Non-African American) 56.2; Potassium 3.4 mmol/L (3.5-5.1)
[2019-06-04] MEDS ORDERED: quiNIDine sulfate 200 MG TAB PO SCH
[2019-06-04 06:24] LABS: BUN Creatinine Ratio 10.9 (10-20); Calcium 8.7 mg/dl (8.5-10.1); Creatinine Clr Calc Pharmacy 44.8 ml/min; Est GFR (African American) 76.6; Est GFR (Non-African American) 66.1
[2019-06-04] MEDS: PIPERACILLIN/TAZOBACTAM 3.375 GM in DEXTROSE 5% 100 ML IV SCH (08:26)
[2019-06-04] MEDS: FLUTICASONE PROPIONATE NA SPR 16 GM BTL SCH (08:38)
[2019-06-04] MEDS ORDERED: FAMOTIDINE 20 MG TAB PO SCH (09:00)
[2019-06-04] MEDS: POTASSIUM CHLORIDE / WTR 10 MEQ/100 ML PLCT IV SCH ×4 (09:18→14:19)
--- NOTE | 2019-06-04 12:11 | Hospitalist Progress Note ---
Date of Service June 04, 2019 Assessment & Plan (1) Partial bowel obstruction: (2) Diverticulitis: Abdominal pain almost completely resolved. Tolerating diet well. Partial bowel obstruction has completely resolved. Patient reports she takes miralax and senna at home for constipation. Will discontinue senna for now. Advised to take miralax as needed for constipation. Encouraged to stay active and ambulate as she has been doing Will discharge on po cipro and flagyl to complete antibiotic therapy Will follow up with GI for colonoscopy in 6-8 weeks (3) Electrolyte abnormality: Hypokalemic likely due to diarrhea episode yesterday Currently being repleted. Will recheck Potassium level prior to discharge (4) Hyperlipidemia: Continue atorvastatin on discharge (5) Hypothyroidism: Continue levothyroxine on discharge TSH is 0.892 (6) GERD (gastroesophageal reflux disease): Continue omeprazole on discharge Subjective Patient reports that frequent bowel movement has resolved. Back to regular bowel movement of once per day. Reports abdominal pain is almost completely resolved. Still feels mild abdominal soreness on Left lower abdomen. Denied fevers, chills, nausea, vomiting. Tolerating diet well Denied any urinary symptoms Review of Systems Review of Systems: All systems reviewed and unremarkable except for mentioned above. Physical Exam Constitutional: WD/WN, vitals as above + well hydrated; no acute distress Eyes: PERRL, conjunctivae normal, anicteric sclerae ENMT: external ear and nose normal, oropharynx normal Neck: trachea midline, no thyromegaly Respiratory: normal respiratory effort, lungs clear to auscultation Cardiovascular: RRR, no murmur, no edema Heart Sounds: normal S1 and normal S2 Extremities: no pedal edema Gastrointestinal (Abdomen): Inspection/Auscultation: abdomen normal to inspection and normal bowel sounds; abdomen not distended Percussion/Palpation: abdomen soft; abdomen nontender, no guarding, abdomen not rigid and no hepatosplenomegaly Musculoskeletal: no cyanosis or clubbing, extremities motor strength 5/5 Neurologic: PERRL, EOMI, accommodation nl, no face palsy, no dysarthria Psychiatric: A+Ox3, euthymic affect Genitourinary: no CVA tenderness Results & Data Vital Signs (Past 12 Hours) Vital Signs Temp Pulse Resp BP Pulse Ox 06/04/19 11:31 36.8 C 69 17 138/81 98 06/04/19 07:23 36.7 C 70 18 140/77 97 Laboratory Results Laboratory Results - last 24 hr 06/04/19 04:58 Sodium 138 Potassium 3.0 L Chloride 105 Carbon Dioxide 27 Anion Gap 6.0 BUN 9 Creatinine 0.84 Est Cr Clr Drug Dosing 44.8 Est GFR ( Amer) 76.6 Est GFR (Non-Af Amer) 66.1 BUN/Creatinine Ratio 10.9 Glucose 94 Calcium 8.7
[2019-06-04 15:19] LABS: BUN Creatinine Ratio 10.3 (10-20); Creatinine Clr Calc Pharmacy 44.8 ml/min; Est GFR (African American) 76.6; Est GFR (Non-African American) 66.1; Potassium 3.9 mmol/L (3.5-5.1)
--- NOTE | 2019-06-04 16:19 | Discharge Summary ---
Date of Service June 04, 2019 Admission HPI Per Admitting Provider This is a 78-year-old female with a PMH of hyperlipidemia, hypothyroidism and GERD who presents with worsening abdominal pain x 3 days. Patient endorses diffuse sharp abdominal pain with associated nausea. Was seen at [facility] yesterday and was diagnosed with colitis and discharged on Cipro and Flagyl. Overnight, patient developed worsening nausea and endorses 12 small episodes of bilious emesis. Came to ED today for further evaluation. Endorses continued nausea, vomiting and diffuse abdominal pain. Last bowel movement was 5 days ago the patient states she normally only has 2 bowel movements per week. Denies any nausea, vomiting, lightheadedness, visual changes, chest pain, palpitations, dysuria, hematuria or diarrhea. Has history of diverticulitis episode years ago. Admission Exam Per Admitting Provider General Appearance: WD/WN, vitals as above, NAD, sitting up in bed, pleasant, conversing easily Head: normocephalic, atraumatic Eyes: normal inspection, PERRL, conjunctivae normal, anicteric sclerae ENT: external ear and nose normal, oropharynx normal Neck: trachea midline, no thyromegaly normal visual inspection Respiratory: lungs clear to auscultation, no wheeze, rales, rhonchi. Normal insp/exp effort, no accessory muscle use Cardiovascular: regular rate, rhythm, no murmur appreciated, normal peripheral pulses, trace BLE edema. Vessels: no JVD or carotid bruit Chest: normal inspection of chest Abdomen/GI: hypoactive bowel sounds, soft but distended, diffusely tender to palpation, no guarding, no hepatosplenomegaly Extremities/Musculoskelatal: no cyanosis or clubbing, extremities motor strength 5/5 Neurologic: PERRL, EOMI, accommodation nl, no face palsy, no dysarthria CN's II-XI intact bilaterally and moves all extremities Psychiatric: A+Ox3, euthymic affect Skin: no rashes, normal color, warm/dry Principal Diagnosis Diverticulitis Partial large bowel obstruction Discharge Exam Constitutional: WD/WN, vitals as above + well hydrated; no acute distress Eyes: PERRL, conjunctivae normal, anicteric sclerae ENMT: external ear and nose normal, oropharynx normal Neck: trachea midline, no thyromegaly Respiratory: normal respiratory effort, lungs clear to auscultation Cardiovascular: RRR, no murmur, no edema Heart Sounds: normal S1 and normal S2 Extremities: no pedal edema Gastrointestinal (Abdomen): Inspection/Auscultation: abdomen normal to inspection and normal bowel sounds; abdomen not distended Percussion/Palpation: abdomen soft; abdomen nontender, no guarding, abdomen not rigid and no hepatosplenomegaly Musculoskeletal: no cyanosis or clubbing, extremities motor strength 5/5 Neurologic: PERRL, EOMI, accommodation nl, no face palsy, no dysarthria Psychiatric: A+Ox3, euthymic affect Genitourinary: no CVA tenderness Discharge Data Allergies Allergy/AdvReac Type Severity Reaction Status Date / Time fexofenadine Allergy Unknown HIVES Verified 05/31/19 15:34 pseudoephedrine Allergy Unknown HIVES Verified 05/31/19 15:34 Consultations 05/31/19 17:08 ED Decision to Admit Stat 06/01/19 08:00 Consult Gastroenterology Routine Ordered Studies 05/31/19 14:58 CT abd pelvis IV con only Stat 1. Sigmoid diverticulosis with sigmoid wall thickening and mild infiltration of perisigmoid fat. While likely secondary to diverticulitis or infectious sigmoid colitis, close follow-up will be necessary to exclude an underlying neoplasm 2. There is secondary mild dilatation of the more proximal colon with moderate fecal retention. Addition there are mildly prominent fluid-filled small bowel loops 3. No evidence of free intraperitoneal air Hospital Course (1) Partial bowel obstruction: (2) Diverticulitis: Abdominal pain almost completely resolved. Was initially placed NPO on admission. With resolution of bowel obstruction, diet was advanced to low fiber diet Had some episodes of diarrhea after bowel movement resumed which has currently resolved. Partial bowel obstruction has completely resolved. Patient reports she takes miralax and senna at home for constipation. Will discontinue senna for now. Advised to take miralax as needed for constipation. Encouraged to stay active and ambulate as she has been doing Discharged on po cipro and flagyl to complete antibiotic therapy Will follow up with GI for colonoscopy in 6-8 weeks (3) Electrolyte abnormality: Hypokalemic likely due to diarrhea episode Repleted and was normal on discharge (4) Hyperlipidemia: Continue atorvastatin on discharge (5) Hypothyroidism: Continue levothyroxine on discharge TSH is 0.892 (6) GERD (gastroesophageal reflux disease): Continue omeprazole on discharge Total Time Total Time Spent Total Time Spent (In Minutes): 20 Total Time Includes: Examination of the Patient, Discharge Planning and Medication Reconciliation Discharge Plan Discharge Items Patient Disposition: Home - Self-Care Reason For Visit: DIVERTICULITIS Discharge Diagnosis: Diverticulitis Partial large bowel obstruction Condition on Discharge: Good Activity: Resume your previous activity Non-emergency contact: Primary Care Provider and Watch Train Inspector Call non-emergency contact if: you have any medication questions and your symptoms worsen Follow-up/Referrals: Ryley Bailon [Physician] - Antonio Galvan [Primary Care Provider] - Diet: Low Fiber Diet Comment: Low fiber diet for 2-3 weeks Addtl Attending Provider Instructions: Ms Young. You came to the hospital for abdominal pain for a few days associated with nausea, vomiting and abdominal distention. You were evaluated and found to have infection and inflammation in your bowel called diverticulitis. Scan also showed you have some partial obstruction in your bowel likely due to this. You were treated with injection antibiotics and other medications. You were able to start moving your bowels and nausea, vomiting and distention resolved. During your stay, some of the electrolytes (like potassium) were low. This can result from your poor appetite, the vomiting and diarrhea you had. These were monitored and replaced as needed. Please ensure you follow the instructions regarding diet. It is important that you complete the oral antibiotics sent to your pharmacy on discharge. Please follow up with the Watch Train Inspector within 6 - 8 weeks for colonoscopy. Please continue to follow up with your Primary Doctor. It was a pleasure taking care of you. Pending Studies at Discharge: No Stand-Alone Forms: My [facility] Medications and DC Order Prescriptions: New polyethylene glycol 3350 [Miralax] 17 gram Powder In Packet 17 g PO DAILY PRN (Reason: C) Qty: 0 RF: 0 Continued latanoprost 0.005 % drops 1 drp OPB HS RF: 0 atorvastatin 10 mg tablet 10 mg PO DAILY RF: 0 ondansetron HCl 4 mg tablet 4 mg PO Q8H PRN (Reason: Nausea And Vomiting) RF: 0 levothyroxine 75 mcg tablet 75 mcg PO QAM RF: 0 omeprazole 20 mg capsule,delayed release(DR/EC) 20 mg PO QAM RF: 0 metronidazole 500 mg tablet 500 mg PO Q8H 7 Days Qty: 21 RF: 0 ciprofloxacin HCl 500 mg tablet 500 mg PO Q12H 7 Days Qty: 14 RF: 0 Discharge Orders: Discharge Order (Routine); Ordered 06/04/19 Ordered By: Brenna Cabrera/Other Patient Handouts: Diet Low Residue Admission Data Admit Date/Time: 05/31/19 17:23 Attending Provider: Brenna Young I. Admit Provider: Adeel Chung Primary Care Provider: Antonio Galvan Other Providers: Ryley Bailon Satish K. Other Interventions: Discharge Summary Assessment (RN) Last Done: 06/04/19 16:56
[2019-06-05] MEDS ORDERED: LEVOTHYROXINE SODIUM 75 MCG TABLET PO SCH (06:30)
== END 2019-06-04 17:25 | disposition home or self-care (01) | DRG 389 ==
LOC: ED 14:36 → 3N 17:23 → SUATTDRO 17:23 → 3N 18:11

== ENCOUNTER 2025-03-31 15:27 | Observation (INO) ==
[2025-03-31 16:57] LABS: Appearance Urine Clear (Clear); Glucose Urine UA Negative (Negative)
[2025-03-31 17:00] LABS: Hematocrit (blood only) 39.9 % (37.0-47.0); Hemoglobin 13.2 g/dl (12.0-16.0); Immature Granulocytes # (auto) 0.01 K/uL (0.01-0.20); Immature Granulocytes % (auto) 0.2 %; Mean Corpuscular Hemoglobin 29.1 pg (25.0-34.0); Mean Corpuscular Volume 87.9 fL (80.0-100.0); Platelet Count 213 K/uL (130-400); RDW Standard Deviation 43.2 fL (36.4-46.3); Red Blood Count 4.54 M/uL (4.20-5.40); White Blood Count 6.06 K/ul (4.8-10.8)
[2025-03-31 17:17] LABS: Alanine Aminotransferase 10.0 U/L (7-52); Albumin Globulin Ratio 1.3 (0.9-2); Alkaline Phosphatase 127.0 U/L (34-104); Anion Gap 8.0 (3-11); Bilirubin,Total 0.7 mg/dl (0.2-1.0); Blood Urea Nitrogen 13.0 mg/dl (6-23); Calcium 10.3 mg/dl (8.6-10.3); Carbon Dioxide 30.0 mmol/L (21-32); Chloride 100.0 mmol/L (98-107); Creatinine Clr Calc Pharmacy 33.9 ml/min; Globulin 3.2 gm/dl (2.5-4.0); Glucose 92.0 mg/dl (70-99(Fasting)); Lipase 16.0 U/L (11-82); Potassium 4.0 mmol/L (3.5-5.1); Sodium 138.0 mmol/L (136-145); Total Protein 7.5 gm/dl (6.0-8.3)
[2025-03-31] MEDS: FAMOTIDINE 20MG IV PUSH 20 MG/5 ML SYR IV STA (18:21)
--- NOTE | 2025-03-31 18:21 | Emergency Department Note ---
Impression & Plan Nausea & vomiting ED Provider Note Provider: Cornel Dewey MD CHIEF COMPLAINT: Nausea and vomiting HISTORY OF PRESENT ILLNESS: Patient is a 84-year-old female past medical history of UTI, diverticulitis and GERD presenting here today reporting for the last 3 days she has been having nausea and vomiting. Unable to keep down fluid or water. Denies any diarrhea. No other sick contacts or recent travel. No suspect food intake. No fevers. Patient goes to drink something and feels like it gets stuck in her mid chest most like a bubble and then she throws it up. Denies abdominal pain to me. Denies history of similar. Denies history of esophageal issues. Does report a family history of hiatal hernia but the patient has not been diagnosis with this in the past. Patient symptoms are worse when laying flat. PAST MEDICAL HISTORY: As noted above MEDICATIONS: Reviewed home medications SOCIAL HISTORY: Non-smoker PHYSICAL EXAM: GENERAL: alert and oriented in no acute distress on stretcher, family at bedside Head: normocephalic and atraumatic EYES: No injection, discharge or icterus. NECK: Trachea midline. ENT: Mucous membranes pink and moist. LUNGS: Airway patent. No retractions. Breath sounds clear with good air entry bilaterally. HEART: Regular rate and rhythm. No chest wall tenderness ABDOMEN: Soft and non-tender, without guarding or rebound. SKIN: Acyanotic, warm, dry, without rashes EXTREMITIES: Without swelling, tenderness or deformity NEUROLOGICAL: No focal deficits. No aphasia. No facial droop or slurred speech. CONTINUOUS CARDIAC MONITORING: was ordered and showed a heart rate of 60s to 80s bpm in normal sinus rhythm Patient's laboratory studies and imaging reviewed. Differential includes Gastroenteritis, food borne illness, infections, appendicitis, diverticulitis, inflammatory bowel disease, obstruction, GI bleed, biliary pathology, volvulus, as well as other pathologies. IMPRESSION/MEDICAL DECISION MAKING: Patient no distress. Fortunately send at time high-volume acuity as such protocols from triage were completed. Blood work without significant leukocytosis or evidence of anemia. No significant lecture light abnormal signs or renal dysfunction. Benign abdomen. Patient noted stress but states significant difficulty with eating and drinking. There is a reported history of hiatal hernia in discussion with him proceed with CT scans of the chest abdomen pelvis to evaluate the esophagus. No history of this for the patient personally. Give some Pepcid but she denies significant acid reflux symptoms. Zofran given does improve her nausea some. Is telling her all her secretions. CT imaging shows no other acute findings beyond mild distention lower esophagus with possible fluid and food contents. Question of the patient's developed either a stricture or achalasia although she is not a diabetic. Given her significant issues and discomfort with eating and drinking limiting her oral intake, discussed staying for further evaluation tomorrow by GI and possible endoscopy. Again she denies choking on anything and it does not seem like a food bolus. No upper airway involvement. She and family after discussion were agreeable with this plan. Discussed with the hospitalist today for further GI consultation evaluation tomorrow. DIAGNOSIS: Nausea and vomiting DISPOSITION: Hospitalist will evaluate Patient was agreeable with this plan. Past Med/Surg History Problem List (Updated 03/31/25 @ 23:10 by Cornel Dewey M.D.) Nausea & vomiting (Acute) Esophageal abnormality Nausea and vomiting Bloating (Acute) Weakness (Acute) Urgency incontinence (Chronic) Microscopic hematuria (Acute) Recurrent UTI (Chronic) Nocturia Increased urinary frequency Vaginal burning Vulvar lesion Encounter for pre-operative examination Diverticulitis (Acute) Fecal retention (Acute) Electrolyte abnormality (Acute) Partial bowel obstruction GERD (gastroesophageal reflux disease) (Chronic) Hyperlipidemia (Chronic) Hypothyroidism (Chronic) Medical History (Updated 03/31/25 @ 23:10 by Cornel Dewey M.D.) Diverticular disease History of intestinal obstruction 05/2019 Constipation Cardiac murmur follows with Dr. Coles Surgical History History of hysterectomy with unilateral oophorectomy History of right oophorectomy History of dilatation and curettage x4 History of colonoscopy with polypectomy History of esophagogastroduodenoscopy (EGD) History of tooth extraction partial upper History of wisdom tooth extraction History of right cataract extraction Hx of cervical spine surgery normal ROM Hx of cholecystectomy Family History Mother Family history of diabetes mellitus Myocardial infarction Father Prostate cancer Myocardial infarction Brother Prostate cancer Other Coronary heart disease No family history of adverse response to anesthesia Denies family history of Ovarian cancer Breast cancer Colorectal cancer Social History Smoking Status: Never smoker Second Hand Exposure: Yes ( smoked); Do You Dip or Chew Tobacco: No; Hx Alcohol Use: No Hx Substance Use: No Preferred Language: Frisian Communication Ability: Effective Ball Shagger Required: No Beliefs That Will Affect Care: None Current Living Situation: Alone Feels Safe at Home: Yes Assistive Devices: Denture - Upper and Glasses Allergies Allergies Allergy/AdvReac Type Severity Reaction Status Date / Time fexofenadine Allergy Mild HIVES Verified 08/08/22 09:14 pseudoephedrine Allergy Mild HIVES Verified 08/08/22 09:14 Home Meds Home Medications Medication Instructions Recorded Confirmed atorvastatin 10 mg tablet 10 mg PO HS 05/31/19 03/31/25 latanoprost 0.005 % eye drops 1 drp OPB HS 05/31/19 03/31/25 levothyroxine 75 mcg tablet 75 mcg PO QAM 05/31/19 03/31/25 famotidine 20 mg tablet 20 mg PO BID 07/19/19 03/31/25 polyethylene glycol 3350 17 gram 17 g PO DAILY PRN Constipation 07/19/19 03/31/25 oral powder packet (Miralax) tramadol 50 mg PO DAILY 08/01/22 03/31/25 Previous Rx's Medication Instructions Recorded estradiol 0.01% (0.1 mg/gram) 0.25 appful vaginal 2XWK #42.5 12/17/24 vaginal cream grams Results & Data (ED) Vital Signs Vital Signs - 24 hr 03/31/25 15:35 03/31/25 18:05 03/31/25 18:56 Temperature 36.4 C L Temperature Source Temporal Artery Scan Pulse Rate 80 82 Pulse Rate [Right Finger] Pulse Rhythm [Right Finger] Pulse Strength [Right Finger] Respiratory Rate 17 15 Respiratory Effort / Characteristics Non-Labored Spontaneous Respiratory Depth Normal Respiratory Pattern Regular Blood Pressure 147/77 H Blood Pressure [Right Arm] 190/86 H Blood Pressure Mean 100 Blood Pressure Mean [Right Arm] 120 Blood Pressure Position Sitting Blood Pressure Position [Right Arm] Pulse Oximetry 98 98 Oxygen Delivery Method Room Air Room Air Sepsis Recent Fever Within 48 Hours No Sepsis New/Unexplained Change in Mental Status No Sepsis Action Taken by Nursing No Action Required 03/31/25 19:38 Temperature Temperature Source Pulse Rate Pulse Rate [Right Finger] 70 Pulse Rhythm [Right Finger] Regular Pulse Strength [Right Finger] Normal Respiratory Rate 18 Respiratory Effort / Characteristics Non-Labored Spontaneous Respiratory Depth Normal Respiratory Pattern Regular Blood Pressure Blood Pressure [Right Arm] 138/67 Blood Pressure Mean Blood Pressure Mean [Right Arm] 90 Blood Pressure Position Blood Pressure Position [Right Arm] Lying Pulse Oximetry 99 Oxygen Delivery Method Room Air Sepsis Recent Fever Within 48 Hours Sepsis New/Unexplained Change in Mental Status Sepsis Action Taken by Nursing Laboratory Data 03/31/25 16:30 03/31/25 16:30 Lab Results 03/31/25 Range/Units 16:30 WBC 6.06 (4.8-10.8) K/ul RBC 4.54 (4.20-5.40) M/uL Hgb 13.2 (12.0-16.0) g/dl Hct 39.9 (37.0-47.0) % MCV 87.9 (80.0-100.0) fL MCH 29.1 (25.0-34.0) pg MCHC 33.1 (32.0-36.0) g/dL RDW Std Deviation 43.2 (36.4-46.3) fL RDW Coeff of Lance 13.4 (11.5-14.5) % Plt Count 213 (130-400) K/uL MPV 10.9 (9.4-12.4) fL Immature Gran % (Auto) 0.2 % Neut % (Auto) 61.3 % Lymph % (Auto) 27.4 % [place] % (Auto) 6.8 % Eos % (Auto) 3.5 % Baso % (Auto) 0.8 % Neut # (Auto) 3.72 (1.40-6.50) K/uL Lymph # (Auto) 1.66 (1.20-3.40) K/uL [place] # (Auto) 0.41 (0.11-0.59) K/uL Eos # (Auto) 0.21 (0.00-0.50) K/uL Baso # (Auto) 0.05 (0.00-0.20) K/uL Immature Gran # (Auto) 0.01 (0.01-0.20) K/uL Sodium 138 (136-145) mmol/L Potassium 4.0 (3.5-5.1) mmol/L Chloride 100 (98-107) mmol/L Carbon Dioxide 30 (21-32) mmol/L Anion Gap 8 (3-11) BUN 13 (6-23) mg/dl Creatinine 0.99 (0.6-1.2) mg/dl Est Cr Clr Drug Dosing 33.9 ml/min eGFR 55.88 BUN/Creatinine Ratio 13.1 (10-20) Glucose 92 (70-99(Fasting)) mg/dl Calcium 10.3 (8.6-10.3) mg/dl Total Bilirubin 0.7 (0.2-1.0) mg/dl AST 19 (13-39) U/L ALT 10 (7-52) U/L Alkaline Phosphatase 127 H (34-104) U/L Total Protein 7.5 (6.0-8.3) gm/dl Albumin 4.3 (3.4-5.0) gm/dl Globulin 3.2 (2.5-4.0) gm/dl Albumin/Globulin Ratio 1.3 (0.9-2) Lipase 16 (11-82) U/L Urine Color Yellow Urine Appearance Clear (Clear) Urine pH 5.5 (4.5-7.5) Ur Specific [place] 1.024 (1.000-1.030) Urine Protein Negative (Negative) Urine Glucose (UA) Negative (Negative) Urine Ketones 1+ H (Negative) Urine Blood Negative (Negative) Urine Nitrite Negative (Negative) Urine Bilirubin Negative (Negative) Urine Urobilinogen Negative (Negative) Ur Leukocyte Esterase Negative (Negative) Urine Comment Administered Medications Atorvastatin Calcium (Atorvastatin 10 Mg Tab) 10 mg PO HS MIGUEL ÁNGEL Stop: 04/30/25 21:57 Last Admin: 03/31/25 23:00 Dose: Not Given Documented By: KAITLYNN Lactated Ringer's (Lr) 1,000 mls @ 80 mls/hr IV .[id number] MIGUEL ÁNGEL Stop: 04/03/25 20:29 Last Admin: 03/31/25 20:58 Dose: 80 mls/hr Documented By: YEISON Famotidine (Pepcid 20mg Iv Push) 20 mg in 5 mls @ 2.5 mls/min IV BID MIGUEL ÁNGEL Stop: 04/30/25 21:59 Last Admin: 03/31/25 23:01 Dose: 2.5 mls/min Documented By: KAILTYNN Pantoprazole Sodium (Protonix) 40 mg in 10 mls @ 5 mls/min IV BID MIGEUL ÁNGEL Stop: 04/30/25 21:57 Last Admin: 03/31/25 23:01 Dose: 5 mls/min Documented By: KAITLYNN Latanoprost (Latanoprost 0.005% Op Soln 2.5 Ml Btl) 1 drops OPB HS MIGUEL ÁNGEL Stop: 04/30/25 21:57 Last Admin: 03/31/25 23:00 Dose: 1 drops Documented By: KAITLYNN Discontinued Medications Famotidine (Pepcid 20mg Iv Push) 20 mg in 5 mls @ 2.5 mls/min IV NOW STA Stop: 03/31/25 18:14 Last Admin: 03/31/25 18:21 Dose: 2.5 mls/min Documented By: MARIANNA Sodium Chloride (Nss) 500 mls @ 999 mls/hr IV .Q31M ONE Stop: 03/31/25 18:43 Last Infusion: 03/31/25 19:49 Dose: Infused Documented By: Admin: 03/31/25 18:22 Dose: 999 mls/hr Documented By: MARIANNA Ioversol (Optiray 320 100ml) 90 ml IV ONCE ONE Stop: 03/31/25 18:44 Last Admin: 03/31/25 18:44 Dose: 90 ml Documented By: ARIANNA Ondansetron HCl (Ondansetron Inj 2 Mg/Ml 2 Ml Vial) 4 mg IV NOW STA Stop: 03/31/25 18:25 Last Admin: 03/31/25 18:30 Dose: 4 mg Documented By: MARIANNA Imaging Data Radiologist's Impression: Abdomen/Pelvis CT 03/31/25 18:13 EXAMINATION: CT of the chest, abdomen and pelvis performed after the administration of IV contrast TECHNIQUE: Helical CT images from the lung apices through the symphysis pubis were obtained with contrast. Coronal and sagittal reformatted images were generated at a workstation for further assessment. Dose reduction techniques were achieved by using automatic exposure control and/or adjustment of mA and/or kV according to patient size and/or use of iterative reconstruction technique. COMPARISON: None HISTORY: Vomiting FINDINGS: Lines and tubes: None Mediastinum/Neck Base: No thyroid nodules. Central tracheobronchial tree is patent. Heart size is normal. No pericardial effusion. Normal thoracic vasculature. No thoracic lymphadenopathy. Lungs: No consolidation. No pleural effusion or pneumothorax. Liver: No suspicious liver lesions. Portal veins appear patent. Gallbladder: Cholecystectomy. Spleen: Normal size. Pancreas: No suspicious pancreatic lesions. The pancreatic duct is not dilated. Adrenal glands: No adrenal nodules. Kidneys: No hydronephrosis or obstructing renal stones. Bladder / Pelvic organs: Unremarkable. Bowel: No bowel obstruction. No abnormal bowel wall thickening. The appendix is not well-seen. Fluid likely mixed with some solid contents mildly distended of the lower esophagus. The stomach is decompressed. There is a moderate colonic stool burden. Sigmoid diverticulosis without diverticulitis. Lymph nodes: No retroperitoneal, mesenteric, or pelvic lymphadenopathy. Peritoneum / Retroperitoneum: No free fluid or air within the abdomen. Vessels: No infrarenal aortic aneurysm. Moderate calcifications of the abdominal aorta. Bones and soft tissues: Degenerative changes of the spine. No acute osseous normality. IMPRESSION: Mild distention of the lower esophagus, with fluid and possible solid contents. No other acute findings in the chest, abdomen or pelvis. Electronically signed by Chad Moore 03-31-2025 7:[address] 03/31/25 18:14 EXAMINATION: CT of the chest, abdomen and pelvis performed after the administration of IV contrast TECHNIQUE: Helical CT images from the lung apices through the symphysis pubis were obtained with contrast. Coronal and sagittal reformatted images were generated at a workstation for further assessment. Dose reduction techniques were achieved by using automatic exposure control and/or adjustment of mA and/or kV according to patient size and/or use of iterative reconstruction technique. COMPARISON: None HISTORY: Vomiting FINDINGS: Lines and tubes: None Mediastinum/Neck Base: No thyroid nodules. Central tracheobronchial tree is patent. Heart size is normal. No pericardial effusion. Normal thoracic vasculature. No thoracic lymphadenopathy. Lungs: No consolidation. No pleural effusion or pneumothorax. Liver: No suspicious liver lesions. Portal veins appear patent. Gallbladder: Cholecystectomy. Spleen: Normal size. Pancreas: No suspicious pancreatic lesions. The pancreatic duct is not dilated. Adrenal glands: No adrenal nodules. Kidneys: No hydronephrosis or obstructing renal stones. Bladder / Pelvic organs: Unremarkable. Bowel: No bowel obstruction. No abnormal bowel wall thickening. The appendix is not well-seen. Fluid likely mixed with some solid contents mildly distended of the lower esophagus. The stomach is decompressed. There is a moderate colonic stool burden. Sigmoid diverticulosis without diverticulitis. Lymph nodes: No retroperitoneal, mesenteric, or pelvic lymphadenopathy. Peritoneum / Retroperitoneum: No free fluid or air within the abdomen. Vessels: No infrarenal aortic aneurysm. Moderate calcifications of the abdominal aorta. Bones and soft tissues: Degenerative changes of the spine. No acute osseous normality. IMPRESSION: Mild distention of the lower esophagus, with fluid and possible solid contents. No other acute findings in the chest, abdomen or pelvis. Electronically signed by Chad Moore 03-31-2025 7:10 PM Discharge Plan Visit Data Chief Complaint: Vomiting Stated Complaint: THROWING UP, CANT EAT OR DRINK ED Provider: Cornel Dewey Discharge Problem: Nausea & vomiting Patient Disposition: Admitted As Inpatient Condition: Fair Discharge Instructions Interventions: ED Discharge Assessment Last Done: 03/31/25 21:40
[2025-03-31] MEDS: SODIUM CHLORIDE 0.9% 500 ML IV ONE (18:22)
[2025-03-31] MEDS: ONDANSETRON INJ 2 MG/ML 2 ML VIAL IV STA (18:30)
[2025-03-31] MEDS: OPTIRAY 320 100ml IV ONE (18:44)
--- NOTE | 2025-03-31 19:10 | CT Scan Report ---
EXAMINATION: CT of the chest, abdomen and pelvis performed after the administration of IV contrast TECHNIQUE: Helical CT images from the lung apices through the symphysis pubis were obtained with contrast. Coronal and sagittal reformatted images were generated at a workstation for further assessment. Dose reduction techniques were achieved by using automatic exposure control and/or adjustment of mA and/or kV according to patient size and/or use of iterative reconstruction technique. COMPARISON: None HISTORY: Vomiting FINDINGS: Lines and tubes: None Mediastinum/Neck Base: No thyroid nodules. Central tracheobronchial tree is patent. Heart size is normal. No pericardial effusion. Normal thoracic vasculature. No thoracic lymphadenopathy. Lungs: No consolidation. No pleural effusion or pneumothorax. Liver: No suspicious liver lesions. Portal veins appear patent. Gallbladder: Cholecystectomy. Spleen: Normal size. Pancreas: No suspicious pancreatic lesions. The pancreatic duct is not dilated. Adrenal glands: No adrenal nodules. Kidneys: No hydronephrosis or obstructing renal stones. Bladder / Pelvic organs: Unremarkable. Bowel: No bowel obstruction. No abnormal bowel wall thickening. The appendix is not well-seen. Fluid likely mixed with some solid contents mildly distended of the lower esophagus. The stomach is decompressed. There is a moderate colonic stool burden. Sigmoid diverticulosis without diverticulitis. Lymph nodes: No retroperitoneal, mesenteric, or pelvic lymphadenopathy. Peritoneum / Retroperitoneum: No free fluid or air within the abdomen. Vessels: No infrarenal aortic aneurysm. Moderate calcifications of the abdominal aorta. Bones and soft tissues: Degenerative changes of the spine. No acute osseous normality. IMPRESSION: Mild distention of the lower esophagus, with fluid and possible solid contents. No other acute findings in the chest, abdomen or pelvis. Electronically signed by Chad Moore 03-31-2025 7:10 PM
--- NOTE | 2025-03-31 19:52 | History & Physical Report ---
Date of Service March 31, 2025 Assessment & Plan (1) Nausea and vomiting: (2) Esophageal abnormality: Plan 84-year-old female PMHx GERD, HLD, hypothyroidism, OA, COPD, and urinary incontinence presenting for nausea and vomiting for the past 3 days [employer]. ED evaluation reveals CBC without leukocytosis and a stable H&H; CMP grossly WNL with exception of alkaline phosphatase 127; UA negative for infection; CTAP mild distention of the lower esophagus with fluid and possible solid contents, no other acute findings in the chest/abdomen/pelvis; chest CT mild distention of the lower esophagus again with fluid and possible solid contents but no other acute findings.; Patient was provided with 500 mL NSS, Zofran 4 mg IV, and famotidine 20 mg IV in ED. #Nausea with vomiting/Esophageal distention Presenting with 3 days of nausea and vomiting with any food intake. No diarrhea/constipation. No difficulties breathing or SOB. Patient does have history of GERD, takes famotidine twice daily at baseline. Concern for possible esophageal stricture. - CBC without leukocytosis and with a stable H&H; CMP WNL with exception alk phos 127 (no abdominal pain, ? vitamin D)- BMP am, vitamin D am - CTAP/Chest CT conclude mild distention of the lower esophagus with fluid and possible solid contents identified but no other acute findings - NPO now - IVF LR @ 80 mL/hr - Zofran prn N/V - Continue famotidine IV and start pantoprazole IV BID - Dietitian consulted - appreciate assistance - GI consulted - appreciate input + recs #HLD- Atorvastatin - continue #Hypothyroidism- Levothyroxine - continue #Incontinence (urinary)/Recurrent UTIs- No LUTS at admission, UTI WNL; Follows with urology, most recent visit on 12/16/2024; Estradiol cream, Mirabegron since discontinued- held both at admission #Pain- Tramadol BID; PDMP independently reviewed at time of admission - continue and utilize MiraLAX prn Dispo: Obs, med/sx VTE Prophylaxis: SCDs This document was dictated utilizing [employer]. Please excuse any grammatical errors that may be secondary to use of this software. Admission and Anticipated Discharge Date Admission Date: 03/31/2025 History of Present Illness Chief Complaint: Nausea and vomiting Primary Care Provider: Antonio Galvan 84-year-old female PMHx GERD, HLD, hypothyroidism, OA, COPD, and urinary incontinence presenting for nausea and vomiting for the past 3 days [employer]. Patient states that 3 days [employer] O[employer] she started to notice that anytime she would have anything to eat or drink she would have vomiting just a few minutes after this. This occurred with any solid or liquid. She would have undigested food come back up, and would feel nauseous. She did not have any abdominal pain. Does occasionally have constipation which she uses MiraLAX as needed, but has not needed this in the around 1 week. No diarrhea. She does state that sometimes she feels that there is "something in there" in her chest, but no chest pain. No shortness of breath or feeling as though she was choking. She denies additional symptoms to include abdominal pain or change in her bowel movements. Denies chest pain, SOB, palpitations, numbness/tingling, fever/chills, URI symptoms, LUTS, weakness, or syncope. States that she has a history of GERD and has been taking medication for/for approximately 6 to 8 years. She takes her famotidine as prescribed. Does not report any choking episode. Never had this happen before. ED evaluation reveals CBC without leukocytosis and a stable H&H; CMP grossly WNL with exception of alkaline phosphatase 127; UA negative for infection; CTAP mild distention of the lower esophagus with fluid and possible solid contents, no other acute findings in the chest/abdomen/pelvis; chest CT mild distention of the lower esophagus again with fluid and possible solid contents but no other acute findings.; Patient was provided with 500 mL NSS, Zofran 4 mg IV, and famotidine 20 mg IV in ED. Please see Dr. Quintanilla's attestation for adjustments/additions to treatment plan. Allergies Allergy/AdvReac Type Severity Reaction Status Date / Time fexofenadine Allergy Mild HIVES Verified 08/08/22 09:14 pseudoephedrine Allergy Mild HIVES Verified 08/08/22 09:14 Home Medications Medication Instructions Recorded Confirmed Type atorvastatin 10 mg tablet 10 mg PO HS 05/31/19 03/31/25 History latanoprost 0.005 % eye drops 1 drp OPB HS 05/31/19 03/31/25 History levothyroxine 75 mcg tablet 75 mcg PO QAM 05/31/19 03/31/25 History famotidine 20 mg tablet 20 mg PO BID 07/19/19 03/31/25 History polyethylene glycol 3350 17 gram 17 g PO DAILY PRN Constipation 07/19/19 03/31/25 History oral powder packet (Miralax) tramadol 50 mg PO DAILY 08/01/22 03/31/25 History estradiol 0.01% (0.1 mg/gram) 0.25 appful vaginal 2XWK #42.5 12/17/24 03/31/25 Rx vaginal cream grams Past Med/Surg History Problem List (Updated 03/31/25 @ 20:33 by Markos Mccrary PA-C) Esophageal abnormality Nausea and vomiting Bloating (Acute) Weakness (Acute) Urgency incontinence (Chronic) Microscopic hematuria (Acute) Recurrent UTI (Chronic) Nocturia Increased urinary frequency Vaginal burning Vulvar lesion Encounter for pre-operative examination Diverticulitis (Acute) Fecal retention (Acute) Electrolyte abnormality (Acute) Partial bowel obstruction GERD (gastroesophageal reflux disease) (Chronic) Hyperlipidemia (Chronic) Hypothyroidism (Chronic) Medical History (Updated 03/31/25 @ 20:33 by Markos Mccrary PA-C) Diverticular disease History of intestinal obstruction 05/2019 Constipation Cardiac murmur follows with Dr. Coles Surgical History History of hysterectomy with unilateral oophorectomy History of right oophorectomy History of dilatation and curettage x4 History of colonoscopy with polypectomy History of esophagogastroduodenoscopy (EGD) History of tooth extraction partial upper History of wisdom tooth extraction History of right cataract extraction Hx of cervical spine surgery normal ROM Hx of cholecystectomy Family History Mother Family history of diabetes mellitus Myocardial infarction Father Prostate cancer Myocardial infarction Brother Prostate cancer Other Coronary heart disease No family history of adverse response to anesthesia Denies family history of Ovarian cancer Breast cancer Colorectal cancer Social History Smoking Status: Never smoker Second Hand Exposure: Yes ( smoked); Do You Dip or Chew Tobacco: No; Hx Alcohol Use: No Hx Substance Use: No Preferred Language: Polish Communication Ability: Effective Smelter Charger Required: No Beliefs That Will Affect Care: None Current Living Situation: Alone Feels Safe at Home: Yes Assistive Devices: Denture - Upper and Glasses Review of Systems Review of Systems: All systems reviewed & are unremarkable except as noted in Subjective Physical Exam Physical Exam: General: No acute distress Skin: Warm and dry, varicose veins bilateral lower extremities Head: Normocephalic, atraumatic Eyes: PERRL, conjunctivae clear, sclera non-icteric; wears glasses ENT: External ear and ear canal without swelling; nose atraumatic; good dentition, tongue normal appearance, pharynx normal Neck: Supple, no LAD Cardio: RRR, no M/G/R, S1 and S2 normal Resp: No respiratory distress, Lungs CTA in all lobes bilaterally, no wheezes, rales, or rhonchi Abdomen: Soft, symmetric, nontender; No masses or hepatosplenomegaly; Bowel sounds normoactive MSK: No deformities; pulses palpable and equal; no edema. Neuro: Awake, alert; Sensation intact bilaterally; CN grossly intact Psych: Appropriate mood and affect; good judgement and insight. 2 family members present in room at time of visit. Results & Data Results & Data Vital Signs (Past 12 Hours) Vital Signs Temp Pulse Pulse Resp BP BP Pulse Ox 03/31/25 19:38 70 18 138/67 99 03/31/25 18:56 82 03/31/25 18:05 15 190/86 H 98 03/31/25 15:35 36.4 C L 80 17 147/77 H 98 O2 Del Method 03/31/25 19:38 Room Air 03/31/25 18:56 03/31/25 18:05 Room Air 03/31/25 15:35 Room Air Laboratory Results 03/31/25 16:30 WBC 6.06 RBC 4.54 Hgb 13.2 Hct 39.9 MCV 87.9 MCH 29.1 MCHC 33.1 RDW Std Deviation 43.2 RDW Coeff of Lance 13.4 Plt Count 213 MPV 10.9 Immature Gran % (Auto) 0.2 Neut % (Auto) 61.3 Lymph % (Auto) 27.4 [place] % (Auto) 6.8 Eos % (Auto) 3.5 Baso % (Auto) 0.8 Neut # (Auto) 3.72 Lymph # (Auto) 1.66 [place] # (Auto) 0.41 Eos # (Auto) 0.21 Baso # (Auto) 0.05 Immature Gran # (Auto) 0.01 Sodium 138 Potassium 4.0 Chloride 100 Carbon Dioxide 30 Anion Gap 8 BUN 13 Creatinine 0.99 Est Cr Clr Drug Dosing 33.9 eGFR 55.88 BUN/Creatinine Ratio 13.1 Glucose 92 Calcium 10.3 Total Bilirubin 0.7 AST 19 ALT 10 Alkaline Phosphatase 127 H Total Protein 7.5 Albumin 4.3 Globulin 3.2 Albumin/Globulin Ratio 1.3 Lipase 16 Urine Color Yellow Urine Appearance Clear Urine pH 5.5 Ur Specific [place] 1.024 Urine Protein Negative Urine Glucose (UA) Negative Urine Ketones 1+ H Urine Blood Negative Urine Nitrite Negative Urine Bilirubin Negative Urine Urobilinogen Negative Ur Leukocyte Esterase Negative Urine Comment Diagnostic Findings Abdomen/Pelvis CT 03/31/25 18:13 EXAMINATION: CT of the chest, abdomen and pelvis performed after the administration of IV contrast TECHNIQUE: Helical CT images from the lung apices through the symphysis pubis were obtained with contrast. Coronal and sagittal reformatted images were generated at a workstation for further assessment. Dose reduction techniques were achieved by using automatic exposure control and/or adjustment of mA and/or kV according to patient size and/or use of iterative reconstruction technique. COMPARISON: None HISTORY: Vomiting FINDINGS: Lines and tubes: None Mediastinum/Neck Base: No thyroid nodules. Central tracheobronchial tree is patent. Heart size is normal. No pericardial effusion. Normal thoracic vasculature. No thoracic lymphadenopathy. Lungs: No consolidation. No pleural effusion or pneumothorax. Liver: No suspicious liver lesions. Portal veins appear patent. Gallbladder: Cholecystectomy. Spleen: Normal size. Pancreas: No suspicious pancreatic lesions. The pancreatic duct is not dilated. Adrenal glands: No adrenal nodules. Kidneys: No hydronephrosis or obstructing renal stones. Bladder / Pelvic organs: Unremarkable. Bowel: No bowel obstruction. No abnormal bowel wall thickening. The appendix is not well-seen. Fluid likely mixed with some solid contents mildly distended of the lower esophagus. The stomach is decompressed. There is a moderate colonic stool burden. Sigmoid diverticulosis without diverticulitis. Lymph nodes: No retroperitoneal, mesenteric, or pelvic lymphadenopathy. Peritoneum / Retroperitoneum: No free fluid or air within the abdomen. Vessels: No infrarenal aortic aneurysm. Moderate calcifications of the abdominal aorta. Bones and soft tissues: Degenerative changes of the spine. No acute osseous normality. IMPRESSION: Mild distention of the lower esophagus, with fluid and possible solid contents. No other acute findings in the chest, abdomen or pelvis. Electronically signed by Chad Moore 03-31-2025 7:[address] 03/31/25 18:14 EXAMINATION: CT of the chest, abdomen and pelvis performed after the administration of IV contrast TECHNIQUE: Helical CT images from the lung apices through the symphysis pubis were obtained with contrast. Coronal and sagittal reformatted images were generated at a workstation for further assessment. Dose reduction techniques were achieved by using automatic exposure control and/or adjustment of mA and/or kV according to patient size and/or use of iterative reconstruction technique. COMPARISON: None HISTORY: Vomiting FINDINGS: Lines and tubes: None Mediastinum/Neck Base: No thyroid nodules. Central tracheobronchial tree is patent. Heart size is normal. No pericardial effusion. Normal thoracic vasculature. No thoracic lymphadenopathy. Lungs: No consolidation. No pleural effusion or pneumothorax. Liver: No suspicious liver lesions. Portal veins appear patent. Gallbladder: Cholecystectomy. Spleen: Normal size. Pancreas: No suspicious pancreatic lesions. The pancreatic duct is not dilated. Adrenal glands: No adrenal nodules. Kidneys: No hydronephrosis or obstructing renal stones. Bladder / Pelvic organs: Unremarkable. Bowel: No bowel obstruction. No abnormal bowel wall thickening. The appendix is not well-seen. Fluid likely mixed with some solid contents mildly distended of the lower esophagus. The stomach is decompressed. There is a moderate colonic stool burden. Sigmoid diverticulosis without diverticulitis. Lymph nodes: No retroperitoneal, mesenteric, or pelvic lymphadenopathy. Peritoneum / Retroperitoneum: No free fluid or air within the abdomen. Vessels: No infrarenal aortic aneurysm. Moderate calcifications of the abdominal aorta. Bones and soft tissues: Degenerative changes of the spine. No acute osseous normality. IMPRESSION: Mild distention of the lower esophagus, with fluid and possible solid contents. No other acute findings in the chest, abdomen or pelvis. Electronically signed by Chad Moore 03-31-2025 7:10 PM Medications Administered 500 mL NSS Zofran 4 mg IV Famotidine 20 mg IV Code Status & VTE Plan Code Status DNR/DNI PG Care Time/CCT Total # of Minutes Spent Total Time Spent with Patient: Total time spent is greater than 50% in coordination of care (as documented) at patient's floor/unit and/or counseling patient: Coding Level of Care Code 08229 INT INP/OBS CARE 3/75MIN Diagnoses Nausea and vomiting R11.2 Esophageal abnormality K22.9
[2025-03-31] MEDS ORDERED: ONDANSETRON INJ 2 MG/ML 2 ML VIAL IV PRN ×2 (20:28→21:58)
[2025-03-31] MEDS: LACTATED RINGER'S 1,000 ML IV SCH (20:58)
[2025-03-31] MEDS ORDERED: MAGNESIUM HYDROXIDE SUSP 30 ML UDC PO PRN (21:58)
[2025-03-31] MEDS ORDERED: POLYETHYLENE (MIRALAX) 17 GM PACK PO PRN (21:58)
[2025-03-31] MEDS ORDERED: ACETAMINOPHEN 325 MG TAB PO PRN (21:58)
[2025-03-31] MEDS ORDERED: MELATONIN 3 MG TAB PO PRN (21:58)
[2025-03-31] MEDS: LATANOPROST 0.005% OP SOLN 2.5 ML BTL OPB SCH (23:00)
[2025-03-31] MEDS: ATORVASTATIN 10 MG TAB PO SCH (23:00)
[2025-03-31] MEDS: PANTOprazole 40 MG/10 ML SYR IV SCH (23:01)
[2025-03-31] MEDS: FAMOTIDINE 20MG IV PUSH 20 MG/5 ML SYR IV SCH (23:01)
[2025-04-01] MEDS: LEVOTHYROXINE SODIUM 75 MCG TABLET PO SCH (05:13)
[2025-04-01 07:21] LABS: Anion Gap 6.0 (3-11); Blood Urea Nitrogen 11.0 mg/dl (6-23); Calcium 9.4 mg/dl (8.6-10.3); Carbon Dioxide 30.0 mmol/L (21-32); Chloride 103.0 mmol/L (98-107); Creatinine Clr Calc Pharmacy 40.9 ml/min; Glucose 84.0 mg/dl (70-99(Fasting)); Potassium 3.9 mmol/L (3.5-5.1); Sodium 139.0 mmol/L (136-145)
--- NOTE | 2025-04-01 10:12 | Gastrointestinal Consultation ---
Date of Consultation April 01, 2025 Assessment & Plan (1) Nausea & vomiting: (2) Esophageal abnormality: Plan Patient is an 84 year old female with a past medical history of GERD, HLD, hypothyroidism, OA, COPD, and urinary incontinence who presented to the ED on 03/31/25 for nausea and vomiting that had been ongoing for [address] A/P showing mild distention of the lower esophagus with fluid and possible solid contents. - will set the patient up for EGD to further evaluate for today. - continue with protonix 40 IV bid and famotidine 20mg bid. - continue with zofran 4gm every 6 hours as needed for nausea/vomiting. Supervising Physician Co-Signing Physician Notes I personally saw and examined the patient. I have reviewed the chart and agree with the documentation provided by the CONTENT PRODUCTION SPECIALIST including discussion about the assessment, treatment and plan. Briefly, 84 year old female with a past medical history of GERD, HLD, hypothyroidism, OA, COPD, and urinary incontinence who presented to the ED on 03/31/25 for nausea and vomiting that had been ongoing for [address] A/P showing mild distention of the lower esophagus with fluid and possible solid contents. + nausea with gerd and some dysphagia. EGD in or to eval for achalasia vs stricture. NPO History of Present Illness Reason for Consultation: ? esophageal stricture or achalasia Requesting Physician: Elizabeth AARON Attending Physician: Lonnie Adair MD History of Present Illness Patient is an 84 year old female with a past medical history of GERD, HLD, hypothyroidism, OA, COPD, and urinary incontinence who presented to [facility] ED on 03/31/25 for nausea and vomiting that had been ongoing for 4 days. ED evaluation reveals CBC without leukocytosis and a stable H&H; CMP grossly WNL with exception of alkaline phosphatase 127; UA negative for infection; CT AP mild distention of the lower esophagus with fluid and possible solid contents, no other acute findings in the chest/abdomen/pelvis; chest CT mild distention of the lower esophagus again with fluid and possible solid contents but no other acute findings. she tells me that since admission, she has not had further nausea or vomiting but that it does seem to come on when she eats. she has been NPO. no dysphagia per patient. she denies any abdominal pain, changes in bowels, brbpr, or melena. she tells me that she not had an EGD in the past. Allergies Allergy/AdvReac Type Severity Reaction Status Date / Time fexofenadine Allergy Mild HIVES Verified 08/08/22 09:14 pseudoephedrine Allergy Mild HIVES Verified 08/08/22 09:14 Home Medications Medication Instructions Recorded Confirmed Type atorvastatin 10 mg tablet 10 mg PO HS 05/31/19 03/31/25 History latanoprost 0.005 % eye drops 1 drp OPB HS 05/31/19 03/31/25 History levothyroxine 75 mcg tablet 75 mcg PO QAM 05/31/19 03/31/25 History famotidine 20 mg tablet 20 mg PO BID 07/19/19 03/31/25 History polyethylene glycol 3350 17 gram 17 g PO DAILY PRN Constipation 07/19/19 03/31/25 History oral powder packet (Miralax) tramadol 50 mg PO DAILY 08/01/22 03/31/25 History estradiol 0.01% (0.1 mg/gram) 0.25 appful vaginal 2XWK #42.5 12/17/24 03/31/25 Rx vaginal cream grams Patient History Medical History (Updated 03/31/25 @ 23:10 by Cornel Dewey M.D.) Diverticular disease History of intestinal obstruction 05/2019 Constipation Cardiac murmur follows with Dr. Coles Surgical History History of hysterectomy with unilateral oophorectomy History of right oophorectomy History of dilatation and curettage x4 History of colonoscopy with polypectomy History of esophagogastroduodenoscopy (EGD) History of tooth extraction partial upper History of wisdom tooth extraction History of right cataract extraction Hx of cervical spine surgery normal ROM Hx of cholecystectomy Family History Mother Family history of diabetes mellitus Myocardial infarction Father Prostate cancer Myocardial infarction Brother Prostate cancer Other Coronary heart disease No family history of adverse response to anesthesia Denies family history of Ovarian cancer Breast cancer Colorectal cancer Social History Smoking Status: Never smoker Second Hand Exposure: Yes ( smoked); Do You Dip or Chew Tobacco: No; Hx Alcohol Use: No Hx Substance Use: No Preferred Language: Maltese Communication Ability: Effective Medical Doctor Md/Medical Director Required: No Beliefs That Will Affect Care: None Current Living Situation: Alone Other Information That Helps Us Care for You: No Feels Safe at Home: Yes Safety Concerns: Feels Safe At This Time Assistive Devices: None Assistive Devices Comment: partial plate on top Review of Systems Review of Systems: All systems reviewed & are unremarkable except as noted in HPI & below Physical Exam Constitutional: WD/WN, vitals as above Respiratory: normal respiratory effort, lungs clear to auscultation Cardiovascular: Rate/Rhythm: regular rate and regular rhythm Gastrointestinal (Abdomen): normal bowel sounds, soft, nontender, no hep atosplenomegaly Psychiatric: Orientation: alert and oriented x 3 Affect: euthymic affect Results & Data Vital Signs (Past 12 Hours) Vital Signs Temp Pulse Resp BP Pulse Ox O2 Del Method 04/01/25 07:09 97.5 F L 66 16 145/78 H 97 Room Air 03/31/25 22:16 97.7 F 63 18 154/78 H 97 Room Air Coding Level of Care Code 44479 INT INP/OBS CARE 2/55MIN Diagnoses Nausea & vomiting R11.2 Esophageal abnormality K22.9
[2025-04-01] MEDS ORDERED: PROPOFOL IV EMULSION 10 MG/ML 20 ML VIAL IV ONE (11:18)
[2025-04-01] MEDS ORDERED: ROCURONIUM BROMIDE 10 MG/ML 5 ML VIAL IV ONE (11:18)
[2025-04-01] MEDS ORDERED: LIDOCAINE 2% 2 ML VIAL/AMP(20MG/ML) INFIL ONE (11:18)
[2025-04-01] MEDS ORDERED: ONDANSETRON INJ 2 MG/ML 2 ML VIAL ONE (11:18)
--- NOTE | 2025-04-01 11:18 | Anesthesiology Consultation ---
Date of Service April 01, 2025 Assessment & Plan Chart Review Chart Review: Acceptable Risk for Surgery and Patient NOT seen in Pre Admission Testing Consults Requested none History Surgery Operation Date: 04/01/25 10:35 Proposed Procedures p Esophagogastroduodenoscopy - Ismael Cary MD Operation Date: 04/01/25 16:45 Proposed Procedures p Esophagogastroduodenoscopy Luis Daniel - Ismael Cary MD Height/Weight Height: 5 ft Weight: 61 kg Allergies Allergy/AdvReac Type Severity Reaction Status Date / Time fexofenadine Allergy Mild HIVES Verified 08/08/22 09:14 pseudoephedrine Allergy Mild HIVES Verified 08/08/22 09:14 Medications Home Medications Medication Instructions Recorded Confirmed Last Taken atorvastatin 10 mg tablet 10 mg PO HS 05/31/19 03/31/25 07/28/19 latanoprost 0.005 % eye drops 1 drp OPB HS 05/31/19 03/31/25 07/28/19 levothyroxine 75 mcg tablet 75 mcg PO QAM 05/31/19 03/31/25 07/28/19 famotidine 20 mg tablet 20 mg PO BID 07/19/19 03/31/25 07/28/19 polyethylene glycol 3350 17 gram 17 g PO DAILY PRN Constipation 07/19/19 03/31/25 1 Week Ago oral powder packet (Miralax) ~03/24/25 tramadol 50 mg PO DAILY 08/01/22 03/31/25 Unknown estradiol 0.01% (0.1 mg/gram) 0.25 appful vaginal 2XWK #42.5 12/17/24 03/31/25 Unknown vaginal cream grams Active Medications Generic Name Dose Route Start Last Admin Trade Name Freq PRN Reason Stop Dose Admin Lactated Ringer's 1,000 mls @ 80 mls/hr 03/31/25 20:30 04/01/25 09:06 Lr IV 04/03/25 20:29 80 mls/hr .[id number] MIGUEL ÁNGEL Administration Famotidine 20 mg in 5 mls @ 2.5 mls/min 03/31/25 22:00 04/01/25 09:04 Pepcid 20mg Iv Push IV 04/30/25 21:59 2.5 mls/min BID MIGUEL ÁNGEL Administration Pantoprazole Sodium 40 mg in 10 mls @ 5 mls/min 03/31/25 21:58 04/01/25 09:05 Protonix IV 04/30/25 21:57 5 mls/min BID MIGUEL ÁNGEL Administration Latanoprost 1 drops 03/31/25 21:58 03/31/25 23:00 Latanoprost 0.005% Op Soln 2.5 Ml Btl OPB 04/30/25 21:57 1 drops HS MIGUEL ÁNGEL Administration Past Medical History Medical History (Updated 03/31/25 @ 23:10 by Cornel Dewey M.D.) Diverticular disease History of intestinal obstruction 05/2019 Constipation Cardiac murmur follows with Dr. Coles Past Family History Family History Mother Family history of diabetes mellitus Myocardial infarction Father Prostate cancer Myocardial infarction Brother Prostate cancer Other Coronary heart disease No family history of adverse response to anesthesia Denies family history of Ovarian cancer Breast cancer Colorectal cancer Past Surgical History Surgical History History of hysterectomy with unilateral oophorectomy History of right oophorectomy History of dilatation and curettage x4 History of colonoscopy with polypectomy History of esophagogastroduodenoscopy (EGD) History of tooth extraction partial upper History of wisdom tooth extraction History of right cataract extraction Hx of cervical spine surgery normal ROM Hx of cholecystectomy Social History Smoking Status: Never smoker Do You Dip or Chew Tobacco: No Hx Alcohol Use: No Hx Substance Use: No substance use type: does not use Physical Exam Vital Signs Last Vital Signs Temp 36.4 C L 04/01/25 07:09 Pulse 66 04/01/25 07:09 Resp 16 04/01/25 07:09 BP 145/78 H 04/01/25 07:09 Pulse Ox 97 04/01/25 07:09 O2 Del Method Room Air 04/01/25 07:09 Testing Laboratory Results 03/31/25 16:30 04/01/25 06:28 Urine Color Yellow 03/31/25 16:30 Urine Appearance Clear (Clear) 03/31/25 16:30 Urine pH 5.5 (4.5-7.5) 03/31/25 16:30 Ur Specific [place] 1.024 (1.000-1.030) 03/31/25 16:30 Urine Protein Negative (Negative) 03/31/25 16:30 Urine Glucose (UA) Negative (Negative) 03/31/25 16:30 Urine Ketones 1+ (Negative) H 03/31/25 16:30 Urine Nitrite Negative (Negative) 03/31/25 16:30 Ur Leukocyte Esterase Negative (Negative) 03/31/25 16:30
[2025-04-01] MEDS ORDERED: SUGAMMADEX SODIUM 200 MG/2 ML VIAL IV ONE (11:22)
[2025-04-01] MEDS ORDERED: ONDANSETRON INJ 2 MG/ML 2 ML VIAL IV PRN (11:29)
[2025-04-01] MEDS ORDERED: ATROPINE SULFATE 0.1 MG/ML 10ML SYR IV PRN (11:29)
--- NOTE | 2025-04-01 12:20 | GI REPORT ---
[facility] Patient: CHELSEA JEAN : 1940 Sex at : Female Age: 84 Years Procedure: Upper GI endoscopy Date: 04/01/2025 Attending Physician: Ismael Cary MD Referring MD: Referred Self; Lonnei Adair Indications: - Nausea with vomiting - Dysphagia Medications: - Monitored Anesthesia Care Complications: - No immediate complications. Estimated Blood Loss: - Estimated blood loss: None. Procedure: - Prior to the procedure, a History and Physical was performed, and patient medications and allergies were reviewed. The patient's tolerance of previous anesthesia was also reviewed. The risks and benefits of the procedure and the sedation options and risks were discussed with the patient. All questions were answered, and informed consent was obtained. Prior Anticoagulants: The patient has taken no anticoagulant or antiplatelet agents. ASA Grade Assessment: III - A patient with severe systemic disease. After reviewing the risks and benefits, the patient was deemed in satisfactory condition to undergo the procedure. - The egd scope was introduced through the mouth and advanced to the third part of the duodenum. - The upper GI endoscopy was accomplished without difficulty. - The patient tolerated the procedure well. Findings: - LA Grade C (one or more mucosal breaks continuous between tops of 2 or more mucosal folds, less than 75% circumference) esophagitis with no bleeding was found at the gastroesophageal junction (on retroflexion). Biopsies were taken with a cold forceps for histology. Estimated blood loss was minimal. Estimated blood loss was minimal. - Localized and patchy moderate inflammation characterized by erythema was found in the entire examined stomach. Biopsies were taken with a cold forceps for histology. - An acquired benign-appearing, intrinsic moderate stenosis was found in the first portion of the duodenum and was traversed after dilation. Pyloric balloon dilate The dilation site was examined following endoscope reinsertion and showed moderate mucosal disruption. Estimated blood loss was minimal. Impression: - LA Grade C reflux esophagitis with no bleeding. Rule out García's esophagus. Biopsied. - Acute gastritis, characterized by erythema. Biopsied. - Acquired duodenal stenosis. Recommendation: - Discharge patient to home (ambulatory). - Resume previous diet. - Continue present medications. - Await pathology results. - Return to primary care physician as previously scheduled. - Patient has a contact number available for emergencies. The signs and symptoms of potential delayed complications were discussed with the patient. Return to normal activities tomorrow. Written discharge instructions were provided to the patient. - Use Protonix (pantoprazole) 40 mg PO BID for 1 week. - then once daily. - start a full liquid diet and advance slowly today. Findings suggest duodenal stricture as source with esophagitis and gastritis which maybe reactive. Procedure Code(s): - 37161, Esophagogastroduodenoscopy, flexible, transoral; with biopsy, single or multiple Diagnosis Code(s): - R11.2, Nausea with vomiting, unspecified - R13.10, Dysphagia, unspecified - K21.00, Gastro-esophageal reflux disease with esophagitis, without bleeding - K29.00, Acute gastritis without bleeding - K31.5, Obstruction of duodenum CPT(R) - 2023 copyright [employer]. All Rights Reserved. The CPT codes, CCI edits and ICD codes generated are intended as suggestions and were generated based on input data. These codes are preliminary and upon beam dyer recessed vat review may be revised to meet current compliance and payer requirements. The provider is responsible for the final determination of appropriate codes, and modifiers. Ismael Cary MD This document has been electronically signed. Note Initiated:04/01/2025 Note Completed:04/01/2025 12:20 PM \\[email or web address]\Data\Provation\Results\[email or web address]\[id number]
--- NOTE | 2025-04-01 12:21 | Hospitalist Progress Note ---
Date of Service April 01, 2025 Assessment & Plan (1) Nausea and vomiting: Plan: The patient is unable to swallow liquids or solids. She has symptoms of distal esophageal obstruction. Appreciate GI consultation and recommendations. EGD later today, April 01 (2) Esophageal abnormality: Plan: She currently has symptoms of distal esophageal obstruction. Appreciate GI consultation and recommendations. EGD later today, April 01 (3) Hypothyroidism: Plan: Thyroid medication has temporarily been placed on hold. Plan Hopeful discharge to home tomorrow, April 02 Admission and Anticipated Discharge Date Admission Date: March 31, 2025 Subjective Alert and oriented. No distress. She has symptoms of distal esophageal obstruction and quickly vomits when trying to swallow liquids or eating any solids. She has been seen by the GI service. She will undergo EGD later today, April 01. N.p.o. for now. Continue IV fluids. Review of Systems 2 Review of Systems: Constitutionalno fever or chills ENTno blurred vision, no double vision, no epistaxis, no sore throat Respiratoryno cough, no wheezing, no shortness of breath Cardiacno palpitations, no chest pain, no syncope GIsymptoms of esophageal obstruction. Unable to swallow liquids or solids without immediately vomiting. No melena. No hematochezia. GUno urinary retention, no urinary incontinence, no dysuria, no hematuria Musculoskeletalno joint pain, no muscle tenderness Skinno bruising, no rashes, no pruritus Neurono isolated weakness, no paresthesia, no weakness Psychno depression, no anxiety Physical Exam 2 Physical Exam: General-alert and oriented x3, no fever, no chills HEENT-head atraumatic and normocephalic, pupils equal and reactive to light, extraocular muscles intact Neck-no lymphadenopathy or thyromegaly, trachea midline Chest-clear to auscultation. No rales, wheezing or rhonchi Cardiac-regular rate and rhythm, normal S1 and S2 Abdomen-normal bowel sounds, no hepatosplenomegaly Extremities-no cyanosis, clubbing, or edema Neuro-cranial nerves II through XII intact, motor and sensory function within normal limits, strength symmetrical, no focal deficits Psych-normal affect, normal mood Results & Data Results & Data Vital Signs (Past 12 Hours) Vital Signs Temp Pulse Resp BP Pulse Ox O2 Del Method 04/01/25 11:11 36.7 C 86 20 168/89 H 99 Room Air 04/01/25 07:09 36.4 C L 66 16 145/78 H 97 Room Air Laboratory Results 03/31/25 16:30 04/01/25 06:28 PG Care Time/CCT Total # of Minutes Spent Total Time Spent with Patient: Total time spent is greater than 50% in coordination of care (as documented) at patient's floor/unit and/or counseling patient: Coding Level of Care Code 44412 SUB INP/OBS CARE 3/50MIN Diagnoses Nausea and vomiting R11.2 Esophageal abnormality K22.9 Hypothyroidism E03.9
--- NOTE | 2025-04-01 12:43 | Anesthesiology Progress Note ---
Date of Service April 01, 2025 Anesthesia Post Procedure Vital Signs Vital Signs: Temp Pulse Pulse Pulse Resp BP BP 04/01/25 12:30 87 22 167/63 H 04/01/25 12:24 36.1 C L 88 20 161/100 H 04/01/25 11:11 36.7 C 86 20 168/89 H 04/01/25 07:09 36.4 C L 66 16 145/78 H 03/31/25 22:16 36.5 C 63 18 154/78 H 03/31/25 21:40 60 23 196/83 H 03/31/25 21:00 61 20 196/83 H 03/31/25 19:38 70 18 138/67 03/31/25 18:56 82 03/31/25 18:05 15 190/86 H 03/31/25 15:35 36.4 C L 80 17 147/77 H Pulse Ox O2 Del Method 04/01/25 12:30 99 Room Air 04/01/25 12:24 98 Room Air 04/01/25 11:11 99 Room Air 04/01/25 07:09 97 Room Air 03/31/25 22:16 97 Room Air 03/31/25 21:40 97 Room Air 03/31/25 21:00 96 Room Air 03/31/25 19:38 99 Room Air 03/31/25 18:56 03/31/25 18:05 98 Room Air 03/31/25 15:35 98 Room Air Transfer of Care Handoff Completed per policy Notes Mental Status: alert / awake / arousable Patient Amnestic to Procedure: Yes Nausea / Vomiting: adequately controlled Pain: adequately controlled Airway Patency, RR, SpO2: stable & adequate BP & HR: stable & adequate Hydration State: stable & adequate Anesthetic Complications: no major complications apparent and Pt Satisfied with anesthetic care
[2025-04-01] MEDS: SUCRALFATE 1 GM/10 ML UDC PO SCH (16:28)
[2025-04-02] MEDS: LEVOTHYROXINE SODIUM 75 MCG TABLET PO SCH (09:54)
[2025-04-02 11:46] VITALS: BP 156/79; PULSE 75; RESP 16; TEMP 98.6; O2SAT 96
--- NOTE | 2025-04-02 12:32 | Discharge Summary ---
Discharge Summary Date of Service April 02, 2025 Principal Dx & Hospital Course #1 = Principal Diagnosis (1) Nausea and vomiting: The patient was unable to swallow liquids or solids upon presentation. EGD was completed by the GI service and she was found to have a duodenal stricture that was dilated. She is now on Protonix and Carafate therapy (2) Esophageal abnormality: Ruled out. Her symptoms were due to a duodenal stenosis. (3) Hypothyroidism: Thyroid medication was held on admission and then restarted at discharge. Plan Home today, April 02 Admission HPI Per Admitting Provider 84-year-old female PMHx GERD, HLD, hypothyroidism, OA, COPD, and urinary incontinence presenting for nausea and vomiting for the past 3 days [employer]MA[employer]. Patient states that 3 days [employer]MAK[employer] BENCH she started to notice that anytime she would have anything to eat or drink she would have vomiting just a few minutes after this. This occurred with any solid or liquid. She would have undigested food come back up, and would feel nauseous. She did not have any abdominal pain. Does occasionally have constipation which she uses MiraLAX as needed, but has not needed this in the around 1 week. No diarrhea. She does state that sometimes she feels that there is "something in there" in her chest, but no chest pain. No shortness of breath or feeling as though she was choking. She denies additional symptoms to include abdominal pain or change in her bowel movements. Denies chest pain, SOB, palpitations, numbness/tingling, fever/chills, URI symptoms, LUTS, weakness, or syncope. States that she has a history of GERD and has been taking medication for/for approximately 6 to 8 years. She takes her famotidine as prescribed. Does not report any choking episode. Never had this happen before. ED evaluation reveals CBC without leukocytosis and a stable H&H; CMP grossly WNL with exception of alkaline phosphatase 127; UA negative for infection; CTAP mild distention of the lower esophagus with fluid and possible solid contents, no other acute findings in the chest/abdomen/pelvis; chest CT mi ld distention of the lower esophagus again with fluid and possible solid contents but no other acute findings.; Patient was provided with 500 mL NSS, Zofran 4 mg IV, and famotidine 20 mg IV in ED. Please see Dr. Quintanilla's attestation for adjustments/additions to treatment plan. Discharge Exam General-alert and oriented x3, no fever, no chills HEENT-head atraumatic and normocephalic, pupils equal and reactive to light, extraocular muscles intact Neck-no lymphadenopathy or thyromegaly, trachea midline Chest-clear to auscultation. No rales, wheezing or rhonchi Cardiac-regular rate and rhythm, normal S1 and S2 Abdomen-normal bowel sounds, no hepatosplenomegaly Extremities-no cyanosis, clubbing, or edema Neuro-cranial nerves II through XII intact, motor and sensory function within normal limits, strength symmetrical, no focal deficits Psych-normal affect, normal mood Discharge Plan Discharge Items Patient Disposition: Home - Self-Care Reason For Visit: N/V, ESOPHAGEAL DISTENTION Discharge Diagnosis: Duodenal stenosis causing nausea and vomiting Condition on Discharge: Good Activity: Resume your previous activity Non-emergency contact: Primary Care Provider Call non-emergency contact if: your symptoms worsen Follow-up/Referrals: Antonio Galvan [Primary Care Provider] - Diet: Regular Addtl Attending Provider Instructions: Take Protonix daily to suppress stomach acid and Carafate on an empty stomach before meals and at bedtime. All other medications remain the same. See [facility] care provider soon as possible for follow-up. Pending Studies at Discharge: No Stand-Alone Forms: [facility] [employer], Smoking Cessation Medications and DC Order Prescriptions: New pantoprazole 40 mg Tablet,Delayed Release (Dr/Ec) 40 mg PO QAM Qty: 30 0RF sucralfate [Carafate] 1 gram tablet 1 g PO ACHS Qty: 60 0RF Continued tramadol 50 mg PO DAILY Patient Comments: BID estradiol 0.01 % (0.1 mg/gram) cream 0.25 appful vaginal 2XWK Qty: 42.5 5RF Patient Comments: Tues/Fri latanoprost 0.005 % drops 1 drp OPB HS atorvastatin 10 mg tablet 10 mg PO HS levothyroxine 75 mcg tablet 75 mcg PO QAM famotidine 20 mg Tablet 20 mg PO BID polyethylene glycol 3350 [Miralax] 17 gram powder in packet 17 g PO DAILY PRN (Reason: Constipation) Discharge Orders: Discharge Order (Routine); Ordered 04/02/25 Ordered By: Lonnie Adair Admission Data Admit Date/Time: 03/31/25 20:16 Attending Provider: Lonnie Adair Admit Provider: Imelda Quintanilla Primary Care Provider: Antonio Galvan Other Providers: Imelda Quintanilla; [facility] Stay Data Consultations 03/31/25 19:40 ED Decision to Admit Stat 03/31/25 21:58 Consult Gastroenterology Routine Procedures Performed Operation Date: 04/01/25 16:45 <No data on this case meets the specified criteria> Diagnostic Imagining Performed 03/31/25 18:13 CT abd pelvis IV con only Stat 03/31/25 18:14 CT chest diagnostic w con Stat Pending Results Patient Have Any Pending Studies at Discharge: No Discharge Instructions Given to Patient (Per Discharging Provider) Take Protonix daily to suppress stomach acid and Carafate on an empty stomach before meals and at bedtime. All other medications remain the same. See primary care provider soon as possible for follow-up. Total Time Total Time Spent Total Time Spent (In Minutes): 50 minutes Coding Level of Care Code 45509 INP/OBS DISCH >30 MIN Diagnoses Nausea and vomiting R11.2 Esophageal abnormality K22.9 Hypothyroidism E03.9
== END 2025-04-02 13:27 | disposition home or self-care (01) ==
LOC: ED 15:27 → 3N 15:27 → SUATTDRO 20:16 → 3N 21:40